=== PATIENT | female | born 1935 | race Caucasian/White ===

== ENCOUNTER → 2017-09-16 | Outpatient (CLI) | payer MEDICARE, BC ==
[~2017-09-16] MED LIST: ACET500T68 PO; ALB18R INH; ALBU2.5V36 INH; ALEN70TA2 PO; ALPR-459 PO; CALC600T63 PO; CHOL100058 PO; CHOL200025 PO; CIPR-214 PO; CITA-139 PO; COAL130S5 TOP; DONE10TA38 PO; DONE5TAB74 PO; DOXY-179 PO; FERR-53 PO; FURO20TA19 PO; GUAI600T57 PO; HYDR-385 PO; IPRA3AMP21 IH; LANC-1147 MC; LEVO75TA73 PO; LIDO10VI16 INTRA-ART; LORA-629 PO; LORA-630 PO; MAGN400T36 PO; MELO-207 PO; METF-410 PO; MIRT-22 PO; MIRT7.5T2 PO; MOX400 PO; NITR-105 PO; NYST15PO4 TP; OMEP-125 PO; PNEU0.5D3 IM; PRED20TA6 PO; QUIN20TA43 PO; SERT-181 PO; SERT-184 PO; SIME125T3 PO; SIME125T40 PO; SPIR25TA78 PO; TRAM-420 PO; TRAZ-156 PO; TRI40I IART; TRI40I INTRA-ART; [UNRECOGNIZED DRUG - CODE] MC; [UNRECOGNIZED DRUG - REMARK]
== END ==
LOC: ZZSPRING 01:28
PROVIDERS: ATTEND Nurse Practitioner Family
DX: R41.3 Other amnesia (principal); I10 Essential (primary) hypertension; E03.9 Hypothyroidism, unspecified
CPT/HCPCS: 36415; 82040; 82247; 82310; 82374; 82435; 82565; 82947; 84075; 84132; 84155; 84295; 84443; 84450; 84460; 84520; 85027

== ENCOUNTER 2017-09-23 11:12 | Emergency (ER) | payer MEDICARE, BC ==
[~2017-09-23 11:12] MED LIST changes: -DIPH-740 PO; -FLUT16SP19 NS; -LEVO-85 PO
[2017-09-23] MEDS ORDERED: NS(*) 0.9% 1000 ML BAG 1,000 ML IV ONE (11:20)
[2017-09-23] MEDS ORDERED: NITROGLYCERIN 0.4 MG SUBL SL SCH (11:20)
--- NOTE | 2017-09-23 11:31 | EKG ---
FACILITY: [facility] PATIENT NAME: DARSHAN BOND : [id number] MR: [id number] V: [id number] EXAM DATE: ORDERING PHYSICIAN: RYAN LLOYD TECHNOLOGIST: ZANDRA Test Reason : CP, SOB Blood Pressure : / mmHG Vent. Rate : 082 BPM Atrial Rate : 082 BPM P-R Int : 170 ms QRS Dur : 146 ms QT Int : 448 ms P-R-T Axes : 033 -55 116 degrees QTc Int : 523 ms Sinus rhythm Left axis deviation Left bundle branch block Abnormal ECG Confirmed by YOLANDA LORENZ ([id number]) on 09/23/2017 5:03:33 PM Referred By: LIZZY Confirmed By:YOLANDA LORENZ
--- NOTE | 2017-09-23 11:43 | ER Report ---
History and Physical Time Seen By MD: 11:38 Hx. of Stated Complaint: CP X 1 HR. GIVEN 324 MG ASPIRIN AT [facility]. HAD 5MG MORPHINE AND 1 SPRAY OF NITRO BY EMS. HPI/ROS Patient's 81-year-old female here by ambulance is a DO NOT RESUSCITATE at [facility] per nursing staff she woke up this morning not feeling well at breakfast time she started clutching her chest and complaining of chest pain at that point they called the ambulance on transport to the ER she received 1 spray of some bubbling will Nitrolin 5 mg IV morphine on arrival she's had pain is 1 out of is on a 0-10 scale midsternal radiating to her back Allergies: Coded Allergies: codeine (Unverified Allergy, Mild, 10/26/14) Beef Containing Products (Unverified Allergy, Unknown, 10/26/14) Morpholine Analogues (Unverified Allergy, Unknown, confusion, 10/26/14) mepivacaine (Unverified Allergy, Unknown, rash and mild swelling, 10/26/14) zolpidem (Unverified Allergy, Unknown, 10/26/14) Uncoded Allergies: MOLD (Allergy, Unknown, 10/26/14) Home Meds Active Scripts Diphenhydramine Hcl (BENADRYL) 25 Mg Capsule, 25 MG PO HS, #14 CAPSULE Prov:RYAN LLOYD 09/23/17 Fluticasone Prop 50 Mcg Ns (FLONASE 50 MCG NS) 16 Gm [place].susp, 1 SPRAY NS BID for 14 Days, BOT Prov:RYAN LLOYD 09/23/17 Levofloxacin 500 Mg Tab (LEVAQUIN 500 MG TAB) 500 Mg Tablet, 500 MG PO DAILY for 7 Days, #7 TAB Prov:RYAN LLOYD 09/23/17 Albuterol Sulfate 0.083% (ALBUTEROL SULFATE 0.083%) 2.5 Mg/3 Ml Vial.neb, 2.5 MG INH Q4-6H Y for WHEEZING, #1 BOX 0 Refills Prov:DORIS ADAMSON APRN-C 08/04/17 Sertraline Hcl (SERTRALINE HCL) 100 Mg Tablet, 1 TAB PO QDAY, #30 TAB 5 Refills Prov:DORIS ADAMSON APRNP-C 07/09/17 Mirtazapine (MIRTAZAPINE) 15 Mg Tablet, 1 TAB PO QHS, #30 TAB 5 Refills Prov:DORIS ADAMSON APRN COOKER SODA-C 06/19/17 Tramadol Hcl (TRAMADOL HCL) 50 Mg Tablet, 1 TAB PO 3-4XD for PAIN, #120 TAB 5 Refills Take one tab 3 times daily scheduled and one tab as needed for pain during the night Prov:DORIS ADAMSON APRN [facility] [employer]-C 05/23/17 Simethicone (GAS-X) 125 Mg Tab.chew, 1 TAB PO TIDAC, #90 TAB.CHEW 5 Refills Prov:DORIS ADAMSON APRN [facility]OOK[facility] [employer]A-C 05/23/17 Acetaminophen (TYLENOL EXTRA STRENGTH) 500 Mg Tablet, 1 TAB PO TID, #90 TAB 11 Refills Prov:DORIS ADAMSON GARAGEMAN COOKER [facility]A-C 05/23/17 Levothyroxine Sodium (LEVOTHYROXINE SODIUM) 75 Mcg Tablet, 1 TAB PO QDAY, #90 TAB 4 Refills Prov:DORIS ADAMSON APRN C[facility]A-C 05/23/17 Donepezil Hcl (DONEPEZIL HCL) 10 Mg Tablet, 1 TAB PO QDAY, #90 TAB 3 Refills Prov:SNOWDORIS TATEN COOKER SODA-C 05/23/17 Omeprazole (OMEPRAZOLE) 20 Mg Capsule.dr, 1 CAP PO QDAY, #90 TAB 3 Refills Prov:DORIS ADAMSON APRN COOKER [facility]A-C 05/23/17 Cholecalciferol (Vitamin D3) (VITAMIN D3) 2,000 Unit Capsule, 1 CAP PO DAILY, # 90 CAPSULE 4 Refills Prov:DORIS ADAMSON APRN COOKER [employer]A-C 04/24/17 Doxycycline Hyclate (DOXYCYCLINE HYCLATE) 100 Mg Tablet, 1 TAB PO QDAY, #30 TAB 9 Refills Prov:DORIS ADAMSON GARAGEMAN COOKER SODA-C 04/24/17 Quinapril Hcl (QUINAPRIL HCL) 20 Mg Tablet, 1 TAB PO QDAY, #30 TAB 11 Refills Prov:DORIS ADAMSON GARAGEMAN COOKER SODA-C 04/24/17 Nystatin 100,000 Unit/Gm Top Powder (NYSTATIN 100,000 UNIT/GM TOP POWDER) 15 Gm Powder, 1 DEVON TP BID Y for rash under breasts for 14 Days, #60 GM 2 Refills Apply to rash twice daily until resolved - notify provider if not improved in 2 weeks. Prov:DORIS ADAMSON APRN-C 03/07/17 [place] Tar (T-Gel) 0.5 % Shampoo, 1 DEVON TOP weekly, #1 BOTTLE 3 Refills Prov:DORIS ADAMSON APRN-C 01/14/17 Trazodone Hcl (TRAZODONE HCL) 50 Mg Tablet, 0.5 TAB PO QHS, #45 TAB 1 Refill Prov:DORIS ADAMSON APRN-C 01/14/17 Loratadine (LORATADINE) 10 Mg Tablet, 1 TAB PO DAILY, #90 TAB 4 Refills Prov:ANGEL LUIS COLINDRES MD 08/23/16 Calcium Carbonate (CALCIUM) 600 Mg Tablet, 1 TAB PO BID, #30 TAB 11 Refills Prov:DORIS ADAMSON APRN-C 11/07/15 Lancets (ONE TOUCH DELICA) 1 Each Each, 1 STRIP MC DAILY, #100 2 Refills Prov:DORIS ADAMSON APRN-C 11/18/14 Lancing Device/Lancets (ONE TOUCH DELICA LANCING DEV) 1 Each Kit, 1 STRIP MC DAILY, #100 2 Refills Prov:DORIS ADAMSON APRN-C 11/18/14 Lancets (ONE TOUCH DELICA) 1 Each Each, 1 EACH MC, #1 Prov:DORIS ADAMSON APRN-C 11/18/14 Discontinued Scripts Meloxicam (MELOXICAM) 15 Mg Tablet, 1 TAB PO QDAY, #90 TAB 3 Refills Prov:DORIS ADAMSON APRNP-C 05/23/17 Past Medical/Surgical History Thyroid disease, allergic rhinitis, dementia, hyperlipidemia, hypertension, asthma, sleep apnea, GERD, arthritis, type II diabetes, Hx Smoking: No Smoking Status: Never Smoker Hx Substance Use Disorder: No Hx Alcohol Use: No Constitutional Vital Sign - Last 24 Hours 09/23/17 09/23/17 09/23/17/17/18 11:17 11:17 11:30 11:31 Temp 97.5 Pulse 87 85 Resp 22 21 B/P (MAP) 163/89 178/87 (117) 165/84 (111) Pulse Ox 96 94 O2 Delivery Nasal Cannula O2 Flow Rate 2.0 09/23/17 09/23/17 09/23/17 09/23/17 11:39 11:45 11:50 11:55 B/P (MAP) 183/88 (119) 173/89 (117) 180/90 (120) 169/87 (114) 09/23/17 09/23/17 09/23/17 09/23/17 12:00 12:05 12:10 12:15 Pulse 82 Resp 17 B/P (MAP) 172/82 (112) 166/86 (112) 168/85 (112) 174/85 (114) Pulse Ox 96 09/23/17 09/23/17 09/23/17 09/23/17 12:20 12:25 12:30 12:35 Pulse 84 Resp 17 B/P (MAP) 179/82 (114) 173/83 (113) 187/77 (113) 170/81 (110) Pulse Ox 97 09/23/17 09/23/17 09/23/17 09/23/17 12:40 12:45 12:50 12:55 B/P (MAP) 183/78 (113) 187/86 (119) ???/??? (1665) ???/??? (1665) 09/23/17 09/23/17 09/23/17 09/23/17 13:00 13:05 13:10 13:15 Pulse 88 Resp 20 B/P (MAP) 167/73 (104) 170/66 (100) 156/85 (108) 166/70 (102) Pulse Ox 97 09/23/17 09/23/17 09/23/17 09/23/17 13:20 13:25 13:30 13:35 Pulse 103 Resp 16 B/P (MAP) 179/72 (107) 179/75 (109) 185/74 (111) 184/100 (128) Pulse Ox 97 09/23/17 09/23/17 09/23/17 09/23/17 13:40 13:45 13:50 13:55 B/P (MAP) 192/90 (124) 188/87 (120) 189/92 (124) 188/98 (128) 18 18 18 09/23/17 14:00 14:05 14:10 14:15 Pulse 98 Resp 14 B/P (MAP) 188/91 (123) 182/84 (116) 167/105 (125) 148/111 (123) Pulse Ox 97 18 18 18 09/23/17 14:20 14:25 14:30 14:35 Pulse 99 Resp 15 B/P (MAP) 181/87 (118) 189/88 (121) 191/86 (121) 177/80 (112) Pulse Ox 98 18 18 18 09/23/17 14:40 14:45 14:50 14:55 B/P (MAP) 173/80 (111) 182/78 (112) 183/80 (114) 193/88 (123) 18 18 18 09/23/17 15:00 15:05 15:10 15:15 Pulse 98 Resp 9 B/P (MAP) 183/74 (110) 177/153 (161) 182/83 (116) ???/??? (8465) Pulse Ox 98 18 18 18 09/23/17 15:20 15:27 15:30 15:35 Pulse 96 Resp 28 B/P (MAP) ???/??? (7975) 190/84 (119) 175/129 (144) 184/92 (122) Pulse Ox 95 09/23/18 09/23/18 //18 18 15:40 15:45 15:50 15:55 B/P (MAP) 175/109 (131) 182/127 (145) 163/137 (146) 163/96 (118) 18 18 18 09/23/17 16:00 16:05 16:10 16:15 Pulse 91 Resp 14 B/P (MAP) 168/90 (116) 181/85 (117) 174/82 (112) 163/84 (110) Pulse Ox 87 09/23/17 09/23/17 09/23/17 09/23/17 16:20 16:25 16:30 16:35 Pulse 103 B/P (MAP) ???/??? (1665) ???/??? (1665) 157/91 (113) 175/98 (123) Pulse Ox 97 09/23/17 09/23/17 09/23/17 09/23/17 16:40 16:45 17:00 17:00 Pulse 115 115 Resp 20 20 B/P (MAP) 175/98 (123) 136/103 (114) 09/23/17 09/23/17 17:30 18:00 Pulse 121 109 Resp 28 13 Intake and Output 09/23/17 09/23/17 09/24/17 15:00 23:00 07:00 Intake Total 1100 ml Balance 1100 ml Physical Exam Patient is a 81-year-old female is awake has progressive dementia according to her daughter she is at her normal baseline status HEENT head is normocephalic atraumatic tympanic membranes non-reddened lips are dry no pharyngeal edema no JVD heart rate is regular no murmurs or gallops lungs clear to auscultation abdomen is obese mild tenderness mid epigastric area bowel sounds 4 quadrants moves all extremities no peripheral edema Medical Decision Making Data Points Result Diagram: 09/23/17 1139 09/23/17 1139 Laboratory Hematology Test 09/23/17 11:39 09/23/17 13:45 09/23/17 15:19 Red Blood Count 4.86 M/uL (4.17-5.56) Mean Corpuscular Volume 82.5 fL (80.0-96.0) Mean Corpuscular Hemoglobin 27.5 pg (26.0-33.0) Mean Corpuscular Hemoglobin Concent 33.3 g/dL (32.0-36.0) Red Cell Distribution Width 15.1 % (11.5-14.5) Mean Platelet Volume 8.8 fL (7.2-11.1) Neutrophils (%) (Auto) 89.3 % (39.4-72.5) Lymphocytes (%) (Auto) 2.6 % (17.6-49.6) Monocytes (%) (Auto) 7.9 % (4.1-12.4) Eosinophils (%) (Auto) 0.0 % (0.4-6.7) Basophils (%) (Auto) 0.2 % (0.3-1.4) Nucleated RBC Relative Count (auto) 0.0 /100WBC Neutrophils # (Auto) 23.6 K/uL (2.0-7.4) Lymphocytes # (Auto) 0.7 K/uL (1.3-3.6) Monocytes # (Auto) 2.1 K/uL (0.3-1.0) Eosinophils # (Auto) 0.0 K/uL (0.0-0.5) Basophils # (Auto) 0.1 K/uL (0.0-0.1) Nucleated RBC Absolute Count (auto) 0.00 K/uL Peripheral Blood Smear Yes Y/N Prothrombin Time 15.1 seconds (12.0-14.4) Prothromb Time International Ratio 1.18 Activated Partial Thromboplast Time 29 seconds (23-35) D-Dimer Quantitative (PE/DVT) 1.15 ug/ml (0-0.50) Sodium Level 137 mmol/L (137-145) Potassium Level 3.6 mmol/L (3.5-5.0) Chloride Level 102 mmol/L (98-107) Carbon Dioxide Level 21 mmol/L (22-31) Blood Urea Nitrogen 21 mg/dl (7-18) Creatinine 0.90 mg/dl (0.52-1.04) Glomerular Filtration Rate Calc > 60.0 Random Glucose 222 mg/dl (75-110) Calcium Level 10.8 mg/dl (8.4-10.2) Total Bilirubin 0.8 mg/dl (0.2-1.3) Aspartate Amino Transf (AST/SGOT) 19 U/L (0-35) Alanine Aminotransferase (ALT/SGPT) 12 U/L (0-56) Alkaline Phosphatase 83 U/L (0-126) B-Type Natriuretic Peptide 605 pg/ml (0-100) Total Protein 6.7 gm/dl (6.3-8.2) Albumin 4.1 g/dl (3.5-5.0) Amylase Level 49 U/L (0-110) Lipase 84 U/L (23-300) Urine Color Straw Urine Clarity Clear Urine pH 6.0 pH (4.8-9.5) Urine Specific [place] 1.036 Urine Protein Negative mg/dL (NEGATIVE) Urine Glucose (UA) 500 mg/dL (NEGATIVE) Urine Ketones Trace mg/dL (NEGATIVE) Urine Blood Negative (NEGATIVE) Urine Nitrite Negative (NEGATIVE) Urine Bilirubin Negative (NEGATIVE) Urine Urobilinogen Negative mg/dL (0.2-1.9) Urine Leukocyte Esterase Negative (NEGATIVE) Urine RBC None /HPF (0-2/HPF) Urine WBC 2 /HPF (0-5/HPF) Urine Squamous Epithelial Cells None /LPF (</=FEW) Urine Bacteria Few /HPF (NONE-FEW) Urine Mucus None /HPF (NONE-FEW) Troponin I < 0.012 ng/ml Chemistry Test 09/23/17 11:39 09/23/17 13:45 09/23/17 15:19 White Blood Count 26.5 k/uL (4.5-11.0) Red Blood Count 4.86 M/uL (4.17-5.56) Hemoglobin 13.4 g/dL (12.0-16.0) Hematocrit 40.2 % (34.0-47.0) Mean Corpuscular Volume 82.5 fL (80.0-96.0) Mean Corpuscular Hemoglobin 27.5 pg (26.0-33.0) Mean Corpuscular Hemoglobin Concent 33.3 g/dL (32.0-36.0) Red Cell Distribution Width 15.1 % (11.5-14.5) Platelet Count 214 K/uL (150-450) Mean Platelet Volume 8.8 fL (7.2-11.1) Neutrophils (%) (Auto) 89.3 % (39.4-72.5) Lymphocytes (%) (Auto) 2.6 % (17.6-49.6) Monocytes (%) (Auto) 7.9 % (4.1-12.4) Eosinophils (%) (Auto) 0.0 % (0.4-6.7) Basophils (%) (Auto) 0.2 % (0.3-1.4) Nucleated RBC Relative Count (auto) 0.0 /100WBC Neutrophils # (Auto) 23.6 K/uL (2.0-7.4) Lymphocytes # (Auto) 0.7 K/uL (1.3-3.6) Monocytes # (Auto) 2.1 K/uL (0.3-1.0) Eosinophils # (Auto) 0.0 K/uL (0.0-0.5) Basophils # (Auto) 0.1 K/uL (0.0-0.1) Nucleated RBC Absolute Count (auto) 0.00 K/uL Peripheral Blood Smear Yes Y/N Prothrombin Time 15.1 seconds (12.0-14.4) Prothromb Time International Ratio 1.18 Activated Partial Thromboplast Time 29 seconds (23-35) D-Dimer Quantitative (PE/DVT) 1.15 ug/ml (0-0.50) Glomerular Filtration Rate Calc > 60.0 Calcium Level 10.8 mg/dl (8.4-10.2) Total Bilirubin 0.8 mg/dl (0.2-1.3) Aspartate Amino Transf (AST/SGOT) 19 U/L (0-35) Alanine Aminotransferase (ALT/SGPT) 12 U/L (0-56) Alkaline Phosphatase 83 U/L (0-126) B-Type Natriuretic Peptide 605 pg/ml (0-100) Total Protein 6.7 gm/dl (6.3-8.2) Albumin 4.1 g/dl (3.5-5.0) Amylase Level 49 U/L (0-110) Lipase 84 U/L (23-300) Urine Color Straw Urine Clarity Clear Urine pH 6.0 pH (4.8-9.5) Urine Specific [place] 1.036 Urine Protein Negative mg/dL (NEGATIVE) Urine Glucose (UA) 500 mg/dL (NEGATIVE) Urine Ketones Trace mg/dL (NEGATIVE) Urine Blood Negative (NEGATIVE) Urine Nitrite Negative (NEGATIVE) Urine Bilirubin Negative (NEGATIVE) Urine Urobilinogen Negative mg/dL (0.2-1.9) Urine Leukocyte Esterase Negative (NEGATIVE) Urine RBC None /HPF (0-2/HPF) Urine WBC 2 /HPF (0-5/HPF) Urine Squamous Epithelial Cells None /LPF (</=FEW) Urine Bacteria Few /HPF (NONE-FEW) Urine Mucus None /HPF (NONE-FEW) Troponin I < 0.012 ng/ml Coagulation Test 09/23/17 11:39 Prothrombin Time 15.1 seconds Prothromb Time International Ratio 1.18 Activated Partial Thromboplast Time 29 seconds D-Dimer Quantitative (PE/DVT) 1.15 ug/ml Urinalysis Test 09/23/17 13:45 Urine Color Straw Urine Clarity Clear Urine pH 6.0 pH (4.8-9.5) Urine Specific [place] 1.036 Urine Protein Negative mg/dL (NEGATIVE) Urine Glucose (UA) 500 mg/dL (NEGATIVE) Urine Ketones Trace mg/dL (NEGATIVE) Urine Blood Negative (NEGATIVE) Urine Nitrite Negative (NEGATIVE) Urine Bilirubin Negative (NEGATIVE) Urine Urobilinogen Negative mg/dL (0.2-1.9) Urine Leukocyte Esterase Negative (NEGATIVE) Urine RBC None /HPF (0-2/HPF) Urine WBC 2 /HPF (0-5/HPF) Urine Squamous Epithelial Cells None /LPF (</=FEW) Urine Bacteria Few /HPF (NONE-FEW) Urine Mucus None /HPF (NONE-FEW) EKG/Imaging EKG Interpretation EKG of 1120 normal sinus with left bundle branch block and noticed a left bundle branch block is unchanged from the EKG 10/26/2014 did review EKGs with Dr. Mullins does not meet criteria for STEMI well a repeat at 1515 EKG remains unchanged with left bundle brought branch block ED Course/Re-evaluation Clinical Indication for ER IV: Hydration ED Course Patient came in initially for chest pain EKG showed a left bundle branch block which is old for this patient troponins are negative chest x-ray was negative she did have a white count 25,000 chest x-ray was negative for infection urine specimen was negative for infection she did have some small stones in her gallbladder gallbladder ultrasound showed some sludge in and small stones but amylase lipase are negative liver functions are negative as well discussed this patient with Dr. quevedo we did CT her head which showed some sinus disease and we' ll treat this as potential source of her leukocytosis we'll also CT her at pelvis that showed the small stones in her gallbladder otherwise negative I did talk to the daughter about doing a lumbar puncture she did not want to proceed with this with her mother will treat symptomatically for the sinus infection with Levaquin and Flonase following up closely with primary care physician Re-evaluation Family does not want a lumbar puncture done for this patient to workup her leukocytosis I a did discuss this patient with Dr. quevedo we will treat her sinus infection return [facility] the [place] [facility] with Levaquin prescription follow-up closely with PCP did do a serial troponin here in the emergency room the negative Decision to Disposition Date: Sep 23, 2017 Decision to Disposition Time: 17:30 Depart Departure Latest Vital Signs Vital Signs Date Time Temp Pulse Resp B/P (MAP) Pulse Ox O2 Delivery O2 Flow Rate FiO2 09/23/17 18:00 109 13 09/23/17 16:45 136/103 (114) 09/23/17 16:30 97 09/23/17 11:17 97.5 Nasal Cannula 09/23/17 11:17 2.0 Impression: Primary Impression: Sinusitis Additional Impression: Change in mental status Condition: Improved Disposition: HOME OR SELF-CARE Referrals: DORIS ADAMSON APRN-Kyle (PCP) 2 Days New Scripts Diphenhydramine Hcl (BENADRYL) 25 Mg Capsule 25 MG PO HS, #14 CAPSULE Prov: RYAN LLOYD 09/23/17 Fluticasone Prop 50 Mcg Ns (FLONASE 50 MCG NS) 16 Gm [place].susp 1 SPRAY NS BID for 14 Days, BOT Prov: RYAN LLOYD 09/23/17 Levofloxacin 500 Mg Tab (LEVAQUIN 500 MG TAB) 500 Mg Tablet 500 MG PO DAILY for 7 Days, #7 TAB Prov: RYAN LLOYD 09/23/17 Patient Instructions: Sinusitis (ED) Additional Instructions: Levaquin 500 mg orally daily 7 additional days, Benadryl 25 mg at at bedtime as needed for sleep when necessary, Flonase 1 spray twice a day each [place] 14 days Problem Qualifiers RYAN LLOYD Sep 23, 2017 11:43
[2017-09-23 11:51] LABS: PLATELET COUNT, AUTOMATED 214 K/uL (150-450)
[2017-09-23 12:01] LABS: INR 1.18
--- NOTE | 2017-09-23 12:13 | RADIOLOGY IMAGING REPORT ---
[facility] PATIENT NAME: Kerry Giang : 1935 MR: [id number] V: [id number] EXAM DATE: [id number] ORDERING PHYSICIAN: RYAN LLOYD TECHNOLOGIST: Location: [facility] [place] Patient: Kerry Giang : 1935 Visit/Account:[id number] Date of Sevice: 09/23/2017 EXAMINATION: Portable chest radiograph single view at 11:27 AM HISTORY: Chest pain. COMPARISON: 08/18/2016. FINDINGS: A single portable AP view of the chest is obtained. Lines/tubes: None. Lungs/pleura: Mild linear opacities at the left lung base. No evidence of pneumothorax or significan t pleural effusion. Pulmonary vascularity is within normal limits. Heart: Normal heart size. Mediastinum: Stable mediastinal contours. Calcified plaque at the aortic arch. Bony structures/body wall: Degenerative changes in the shoulders. Multilevel degenerative changes in the spine. IMPRESSION: Mild subsegmental atelectasis at the left lung base. Report Dictated By: Eliazar Ward MD at 09/23/2017 12:07 PM Report E-Signed By: Eliazar Ward MD at 09/23/2017 12:09 PM WSN:[id number]
[2017-09-23] MEDS ORDERED: IOPAMIDOL 76% 75 ML INFUS BTL 75 ML ONE (12:34)
[2017-09-23] MEDS ORDERED: NS 0.9% 150 ML BAG 150 ML ONE (12:34)
--- NOTE | 2017-09-23 13:35 | RADIOLOGY IMAGING REPORT ---
FACILITY: [facility] PATIENT NAME: Kerry Giang : 1935 MR: [id number] V: [id number] EXAM DATE: ORDERING PHYSICIAN: RYAN LLOYD TECHNOLOGIST: Location: [facility] - [place] Patient: Kerry Giang : 1935 Visit/Account:[id number] Date of Sevice: 09/23/2017 CT angiogram chest with contrast Indication: Chest pain. Comparison: None available. Technique: Axial CT images are obtained through the chest after administration of 75 mL Isovue 370 IV contrast. Reformatted coronal and sagittal images were reviewed as well as coronal MIP images. One of the following dose optimization techniques was utilized in the performance of this exam: auto mated exposure control; adjustment of the mA and/or kV according to the patient's size; or use of an iterative reconstruction technique. Specific details can be referenced in the facility's radiology C T exam operational policy. FINDINGS: No evidence of filling defect within the pulmonary vasculature to suggest pulmonary embolus. The heart is normal size without pericardial effusion. Aorta shows mild atherosclerotic calcific nogueiar ges without aneurysm or dissection. The mediastinum and hilar regions show couple small lymph nodes w ithout any enlarged lymph nodes. Lungs show no consolidation, pleural effusion, pneumothorax. No discrete nodule or focal interstitial opacities. Airways are clear. Bony structures show no acute fracture or discrete lesions. Spine shows degenerative changes. There i s some bony fusion of T10-T12 without sequelae. Degenerative changes of the left shoulder. [place] ior left 10th rib fracture. Chest wall shows no enlarged axillary lymph nodes or masses. There appear s to be a benign calcification in the posterior right thyroid or adjacent to the posterior right thyr oid. There may be a couple tiny layering gallstones without other gallbladder abnormality. The stomach pratima ws mild diffuse thickening however is decompressed. The upper abdomen is otherwise unremarkable. IMPRESSION: 1. No evidence of pulmonary embolus. 2. No acute cardiothoracic abnormality 3. Question of a couple tiny gallstones. 4. The stomach does show mild diffuse thickening however is decompressed. This could be due to the de compressed appearance. However follow-up endoscopy can evaluate for abnormality, especially if there is clinical concern. 5. Other chronic findings as above. Report Dictated By: Joseph Cook at 09/23/2017 1:15 PM Report E-Signed By: Joseph Cook at 09/23/2017 1:31 PM WSN:[id number]
--- NOTE | 2017-09-23 15:38 | EKG ---
FACILITY: [facility] PATIENT NAME: DARSHAN BOND : [id number] MR: [id number] V: [id number] EXAM DATE: ORDERING PHYSICIAN: RYAN LLOYD TECHNOLOGIST: ZANDRA Test Reason : SOB Blood Pressure : / mmHG Vent. Rate : 090 BPM Atrial Rate : 090 BPM P-R Int : 174 ms QRS Dur : 140 ms QT Int : 402 ms P-R-T Axes : 067 -58 118 degrees QTc Int : 491 ms Sinus rhythm Left axis deviation Left bundle branch block Abnormal ECG When compared with ECG of 23-SEP-2017 11:20, No significant change was found Confirmed by YOLANDA LORENZ ([id number]) on 09/23/2017 5:11:58 PM Referred By: MICHELLE Confirmed By:YOLANDA LORENZ
--- NOTE | 2017-09-23 15:42 | RADIOLOGY IMAGING REPORT ---
FACILITY: [facility] - [place] PATIENT NAME: Kerry Giang : 1935 MR: [id number] V: [id number] EXAM DATE: ORDERING PHYSICIAN: RYAN LLOYD TECHNOLOGIST: Location: [facility] [place] Patient: Kerry Giang : 1935 Visit/Account:[id number] Date of Sevice: 09/23/2017 GALLBLADDER HISTORY: abd pain COMPARISON: None. FINDINGS: Gallbladder: Nonshadowing nonmobile echogenic foci are seen along the gallbladder wall which may repr esent sludge, nonshadowing calculi or polyps. Gallbladder wall does not appear thickened and measure s 2.4 mm in thickness there is a negative Wynn sign by technologist notation Liver: Negative. Common duct: Normal, 3.7 mm diameter. Pancreas: Partially obscured by bowel, visualized aspects unremarkable. Right kidney: Right kidney appears unremarkable as imaged measuring 9.5 cm in length Upper abdominal aorta and IVC: Patent. Ascites: None visualized. IMPRESSION: Nonshadowing nonmobile echogenic foci are seen along the gallbladder wall which may represent tiny no nshadowing stones, sludge or polyps Report Dictated By: Maci Sánchez MD at 09/23/2017 3:36 PM Report E-Signed By: Maci Sánchez MD at 09/23/2017 3:39 PM WSN:[id number]
[2017-09-23] MEDS ORDERED: LORazepam 2 MG/ML VIAL IVP ONE (16:05)
[2017-09-23 16:45] VITALS: BP 136/103
[2017-09-23] MEDS ORDERED: diphenhydrAMINE 50 MG/ML VIAL IVP ONE ×2 (16:50→17:35)
--- NOTE | 2017-09-23 16:59 | RADIOLOGY IMAGING REPORT ---
FACILITY: [facility] - [place], [place] PATIENT NAME: Kerry Giang : 1935 MR: [id number] V: [id number] EXAM DATE: ORDERING PHYSICIAN: RYAN LLOYD TECHNOLOGIST: Location: [facility] - [place] Patient: Kerry Giang : 1935 Visit/Account:[id number] Date of Sevice: 09/23/2017 CT Head without contrast Indication: Confusion, altered mental status. Comparison: 02/08/2016, report. Images failed to cross over for visualization. Technique: Axial CT images were obtained through the brain from the skull base to the vertex without administration of IV contrast. Reformatted coronal and sagittal images were also obtained. One of the following dose optimization techniques was utilized in the performance of this exam: autom ated exposure control; adjustment of the mA and/or kV according to the patient's size; or use of an i terative reconstruction technique. Specific details can be referenced in the facility's radiology CT exam operational policy. Findings: No evidence of mass, mass effect, or midline shift. No acute intracranial hemorrhage or acute territorial infarction. No extra-axial fluid collection or hydrocephalus. Age-related cerebral atrophy. Periventricular white matter ischemic changes consistent small vessel disease. Ruano/white matter differentiation appears n ormal. The bony structures show no acute fractures or discrete lesions. There is mild irregularity of the an terior left sphenoid sinus wall which could be from a previous fracture. There is a mucosal thickening/fluid seen in both ethmoid sinuses, left maxillary and sphenoid sinus w ith a small amount in the right sphenoid sinus. The remaining sinuses and mastoids visualized are [place] ar. IMPRESSION: 1. Senescent changes without acute abnormality. 2. Sinus disease. Report Dictated By: Joseph Cook at 09/23/2017 4:49 PM Report E-Signed By: Joseph Cook at 09/23/2017 4:56 PM WSN:[id number]
--- NOTE | 2017-09-23 17:07 | RADIOLOGY IMAGING REPORT ---
FACILITY: [facility] - [place] PATIENT NAME: Kerry Giang : 1935 MR: [id number] V: [id number] EXAM DATE: [id number] ORDERING PHYSICIAN: RYAN LLOYD TECHNOLOGIST: Location: [facility] [place] Patient: Kerry Giang : 1935 Visit/Account:[id number] Date of Sevice: 09/23/2017 CT abdomen and pelvis without contrast Indication: Abdominal pain. Comparison: None Available. Technique: Axial CT images are obtained through the abdomen and pelvis. Reformatted coronal and sagit epi images were reviewed. IV contrast was not administered. One of the following dose optimization techniques was utilized in the performance of this exam: auto mated exposure control; adjustment of the mA and/or kV according to the patient's size; or use of an iterative reconstruction technique. Specific details can be referenced in the facility's radiology C T exam operational policy. Findings: Lower lung saenz: Dependent atelectasis, otherwise clear. Evaluation of the solid organs of the abdomen is limited without IV contrast. Liver: No focal parenchymal abnormality of the liver. Biliary: Question of tiny layering gallstones however there is motion artifact causing degradation of the images. The gallbladder is otherwise unremarkable. The biliary system is unremarkable. Pancreas: No focal abnormality. Spleen: Normal appearance. Adrenal glands: Unremarkable. Kidneys / retroperitoneum: No evidence of nephrolithiasis or hydronephrosis. No focal normality. Bowel / peritoneum / mesenteries: The colon does show some diverticula in sigmoid colon without peric olonic inflammation. No other colonic abnormality. The appendix not visualized. No secondary signs of appendicitis. Small bowel shows no focal abnormality or obstruction. The stomach is decompressed and grossly normal. Small hiatal hernia. No free air, free fluid, fluid collections or areas of inflammation. Lymph node assessment: No pathologic adenopathy identified. Pelvic structures: Appear unremarkable. Vessels: Mild atherosclerotic calcifications seen throughout a nonaneurysmal abdominal aorta and bran ches. Musculoskeletal / Body wall: No acute or aggressive osseous abnormality. Degenerative changes spine. Right hip arthroplasty without sequelae. IMPRESSION: 1. No acute intra-abdominal abnormality identified. 2. Sigmoid diverticulosis without radiographic indication of diverticulitis. 3. Question of tiny gallstones. However there is motion artifact degrading the images. The gallbladde r is otherwise grossly normal. Report Dictated By: Joseph Cook at 09/23/2017 4:56 PM Report E-Signed By: Joseph Cook at 09/23/2017 5:04 PM WSN:[id number]
[2017-09-23] MEDS ORDERED: LEVOFLOXACIN/D5W*500 MG/100 ML 100 ML IVPB ONE (17:10)
[2017-09-23] MEDS ORDERED: LEVO-85 PO (17:17)
[2017-09-23] MEDS ORDERED: FLUT16SP19 NS (17:17)
[2017-09-23] MEDS ORDERED: DIPH-740 PO (17:24)
[2017-09-23] MEDS ORDERED: diphenhydrAMINE 25 MG CAP TH PO ONE (18:20)
== END 2017-09-23 18:24 | disposition home or self-care (01) ==
LOC: ER 11:18
DX: J32.9 Chronic sinusitis, unspecified (principal); R41.82 Altered mental status, unspecified; D72.829 Elevated white blood cell count, unspecified; I44.7 Left bundle-branch block, unspecified; R94.31 Abnormal electrocardiogram [ECG] [EKG]
CPT/HCPCS: 36415; 70450; 71045; 71275; 74176; 76705; 81001; 82150; 83690; 83880; 84484; 85025; 85379; 85610; 85730; 93005; 96361; 96365; 96375; 99284; A9270; J1956; J2060; J7030; Q9967; 82040; 82247; 82310; 82374; 82435; 82565; 82947; 84075; 84132; 84155; 84295; 84450; 84460; 84520; A4353; J1200

== ENCOUNTER → 2017-09-23 | Outpatient (CLI) | payer MEDICARE, BC ==
[~2017-09-23] MED LIST changes: +DIPH-740 PO; +FLUT16SP19 NS; +LEVO-85 PO
[2017-09-26 08:53] VITALS: BMI 23.6
== END ==
LOC: AMB 18:19
PROVIDERS: ATTEND Nurse Practitioner
DX: R53.1 Weakness (principal)
CPT/HCPCS: A0425; A0428

== ENCOUNTER → 2017-09-23 | Outpatient (CLI) | payer MEDICARE, BC ==
[2017-09-26 08:53] VITALS: BMI 23.6
== END ==
LOC: AMB 10:53
PROVIDERS: ATTEND Nurse Practitioner
DX: R07.9 Chest pain, unspecified (principal); R06.02 Shortness of breath; R03.0 Elevated blood-pressure reading, without diagnosis of hypertension; R53.1 Weakness; R53.83 Other fatigue
CPT/HCPCS: A0425; A0427

== ENCOUNTER 2017-09-25 17:19 | Inpatient (IN) | payer MEDICARE, BC ==
[~2017-09-25] VITALS: Ht 149.9 cm; Wt 53.1 kg
[2017-09-25] MEDS ORDERED: NS(*) 0.9% 1000 ML BAG 1,000 ML IV ONE (18:00)
--- NOTE | 2017-09-25 18:28 | ER Report ---
History and Physical Time Seen By MD: 17:40 Hx. of Stated Complaint: [place]x of having an elevated wbc since Friday. Worse today. Started on Levaquin Friday (ELLEN STODDARD) HPI/ROS CHIEF COMPLAINT: Elevated white count HISTORY OF PRESENT ILLNESS: 81-year-old female patient presents to emergency room with complaint of an elevated white count. Patient was seen here in the emergency room 2 days ago and was diagnosed with sinusitis. At that time she had a white count of 26,000. She was followed up with primary care provider today who repeated labs. They did note that she had an elevated white count of 37,000, she had a blood pressure of 94/50. She did have a creatinine that had gone from 0.9 2 days ago to 1.2 today. The provider felt that she should be evaluated and treated for possible sepsis. The patient has had worsening confusion, stating that she's had a child today, but does not know who the father is. She also states she was to [place] at the time of his passing. Family denies the patient has had any nausea, vomiting or diarrhea. They have been giving her Levaquin for the last 2 days. Family states that the ASPHALT WORKER that was taking care of her this morning stated that she may possibly have a urinary tract infection as the urine was cloudy this morning. REVIEW OF SYSTEMS: Respiratory: No cough, no dyspnea. Cardiovascular: No chest pain, no palpitations. Gastrointestinal: No vomiting, no abdominal pain. Musculoskeletal: No back pain. (ELLEN STODDARD) Allergies: Coded Allergies: codeine (Unverified Allergy, Mild, 09/25/17) Beef Containing Products (Unverified Allergy, Unknown, 09/25/17) Morpholine Analogues (Unverified Allergy, Unknown, confusion, 09/25/17) mepivacaine (Unverified Allergy, Unknown, rash and mild swelling, 09/25/17) zolpidem (Unverified Allergy, Unknown, 09/25/17) Uncoded Allergies: MOLD (Allergy, Unknown, 10/26/14) Home Meds Active Scripts Fluticasone Prop 50 Mcg Ns (FLONASE 50 MCG NS) 16 Gm [place].susp, 1 SPRAY NS BID for 14 Days, BOT Prov:RYAN LLOYD 09/23/17 Levofloxacin 500 Mg Tab (LEVAQUIN 500 MG TAB) 500 Mg Tablet, 500 MG PO DAILY for 7 Days, #7 TAB Prov:PREMARYAN BRUNO Julienne MCNAIR 09/23/17 Albuterol Sulfate 0.083% (ALBUTEROL SULFATE 0.083%) 2.5 Mg/3 Ml Vial.neb, 2.5 MG INH Q4-6H Y for WHEEZING, #1 BOX 0 Refills Prov:DORIS ADAMSON APRN-C 08/04/17 Sertraline Hcl (SERTRALINE HCL) 100 Mg Tablet, 1 TAB PO QDAY, #30 TAB 5 Refills Prov:DORIS ADAMSON APRN-C 07/09/17 Mirtazapine (MIRTAZAPINE) 15 Mg Tablet, 1 TAB PO QHS, #30 TAB 5 Refills Prov:DORIS ADAMSON APRN-C 06/19/17 Tramadol Hcl (TRAMADOL HCL) 50 Mg Tablet, 1 TAB PO 3-4XD for PAIN, #120 TAB 5 Refills Take one tab 3 times daily scheduled and one tab as needed for pain during the night Prov:DORIS ADAMSON APRN-C 05/23/17 Simethicone (GAS-X) 125 Mg Tab.chew, 1 TAB PO TIDAC, #90 TAB.CHEW 5 Refills Prov:DORIS ADAMSON APRN-C 05/23/17 Acetaminophen (TYLENOL EXTRA STRENGTH) 500 Mg Tablet, 1 TAB PO TID, #90 TAB 11 Refills Prov:DORIS ADAMSON APRN-C 05/23/17 Levothyroxine Sodium (LEVOTHYROXINE SODIUM) 75 Mcg Tablet, 1 TAB PO QDAY, #90 TAB 4 Refills Prov:DORIS ADAMSON APRN-C 05/23/17 Donepezil Hcl (DONEPEZIL HCL) 10 Mg Tablet, 1 TAB PO QDAY, #90 TAB 3 Refills Prov:DORIS ADAMSON APRN-C 05/23/17 Omeprazole (OMEPRAZOLE) 20 Mg Capsule.dr, 1 CAP PO QDAY, #90 TAB 3 Refills Prov:DORIS ADAMSON APRN-C 05/23/17 Cholecalciferol (Vitamin D3) (VITAMIN D3) 2,000 Unit Capsule, 1 CAP PO DAILY, # 90 CAPSULE 4 Refills Prov:DORIS ADAMSON APRN-C 04/24/17 Doxycycline Hyclate (DOXYCYCLINE HYCLATE) 100 Mg Tablet, 1 TAB PO QDAY, #30 TAB 9 Refills Prov:DORIS ADAMSON APRN-C 04/24/17 Quinapril Hcl (QUINAPRIL HCL) 20 Mg Tablet, 1 TAB PO QDAY, #30 TAB 11 Refills Prov:DORIS ADAMSON APRN-C 04/24/17 Nystatin 100,000 Unit/Gm Top Powder (NYSTATIN 100,000 UNIT/GM TOP POWDER) 15 Gm Powder, 1 DEVON TP BID Y for rash under breasts for 14 Days, #60 GM 2 Refills Apply to rash twice daily until resolved - notify provider if not improved in 2 weeks. Prov:DORIS ADAMSON APRN-C 03/07/17 Bradford Tar (T-Gel) 0.5 % Shampoo, 1 DEVON TOP weekly, #1 BOTTLE 3 Refills Prov:DORSI ADAMSON APRN-C 01/14/17 Trazodone Hcl (TRAZODONE HCL) 50 Mg Tablet, 0.5 TAB PO QHS, #45 TAB 1 Refill Prov:DORIS ADAMSON APRN-C 01/14/17 Loratadine (LORATADINE) 10 Mg Tablet, 1 TAB PO DAILY, #90 TAB 4 Refills Prov:ANGEL LUIS COLINDRES MD 08/23/16 Calcium Carbonate (CALCIUM) 600 Mg Tablet, 1 TAB PO BID, #30 TAB 11 Refills Prov:DORIS ADAMSON APRN-C 11/07/15 Lancets (ONE TOUCH DELICA) 1 Each Each, 1 STRIP MC DAILY, #100 2 Refills Prov:DORIS ADAMSON APRN-C 11/18/14 Lancing Device/Lancets (ONE TOUCH DELICA LANCING DEV) 1 Each Kit, 1 STRIP MC DAILY, #100 2 Refills Prov:DORIS ADAMSON APRNC 11/18/14 Lancets (ONE TOUCH DELICA) 1 Each Each, 1 EACH , #1 Prov:SNOWDORIS YONY CHIP BIN OPERATOR-C 11/18/14 Discontinued Scripts Diphenhydramine Hcl (BENADRYL) 25 Mg Capsule, 25 MG PO HS, #14 CAPSULE Prov:RYAN LLOYD HELICOPTER SPECIALIST-C 09/23/17 Past Medical/Surgical History Has a past medical history of dementia, hypertension, hyperlipidemia, asthma, reflux, arthritis, fractures, diabetes, hypothyroidism. Patient has surgical history of appendectomy, total hip replacement, total knee replacement, tonsillectomy. (ELLEN STODDARD) Reviewed Nurses Notes: Yes (ELLEN STODDARD) Hx Smoking: No Smoking Status: Never Smoker Hx Substance Use Disorder: No Hx Alcohol Use: No (ELLEN STODDARD) Constitutional Vital Sign - Last 24 Hours 09/25/17 09/25/17 09/25/17 09/25/17 17:22 17:25 17:40 17:49 Temp 98.6 Pulse 73 75 Resp 20 B/P (MAP) 138/54 138/54 (82) 114/39 (64) Pulse Ox 97 95 O2 Delivery Room Air 09/25/17 09/25/17 09/25/17 09/25/17 18:00 18:05 18:20 18:35 Pulse 85 ? B/P (MAP) 119/48 (71) Pulse Ox 93 09/25/17 09/25/17 09/25/17 09/25/17 18:50 19:00 19:05 19:08 Pulse ? B/P (MAP) 46/28 (34) 110/62 (78) 09/25/17 09/25/17 09/25/17 09/25/17 19:12 19:20 19:30 19:35 Pulse 68 66 B/P (MAP) 137/88 (104) 129/68 (88) Pulse Ox 99 98 09/25/17 09/25/17 09/25/17 09/25/17 19:40 19:55 20:08 20:10 Pulse ??? 78 81 B/P (MAP) 157/75 (102) Pulse Ox 97 98 09/25/17 09/25/17 09/25/17 09/25/17 20:25 20:36 20:40 20:55 Pulse 83 87 84 B/P (MAP) 164/71 (102) Pulse Ox 100 100 96 09/25/17 09/25/17 09/25/17 21:00 21:10 21:15 Pulse 88 84 B/P (MAP) 124/82 (96) Pulse Ox 96 94 ([facility],VIVIANE Thakur MD) Physical Exam General Appearance: The patient is alert, has no immediate need for airway protection and no current signs of toxicity. Respiratory: Chest is non tender, lungs are clear to auscultation. Cardiac: regular rate and rhythm Gastrointestinal: Abdomen is soft and non tender, no masses, bowel sounds normal. Musculoskeletal: Neck: Neck is supple and non tender. Extremities have full range of motion and are non tender. Patient does have some atrophy to the right upper leg, she is complaining some tenderness to palpation. There is no erythema, swelling noted. Skin: No rashes or lesions. DIFFERENTIAL DIAGNOSIS: After history and physical exam differential diagnosis was considered for sepsis, UTI, osteomyelitis. (ELLEN STODDARD) Medical Decision Making Data Points Laboratory Hematology Test 09/25/17 17:25 09/25/17 18:23 09/25/17 18:35 09/25/17 21:03 Erythrocyte Sedimentation Rate 26 mm/HOUR (0-30) Urine Color Aida Urine Clarity Slightly-cloudy Urine pH 5.0 pH (4.8-9.5) Urine Specific [place] 1.027 Urine Protein 30 mg/dL (NEGATIVE) Urine Glucose (UA) 50 mg/dL (NEGATIVE) Urine Ketones Negative mg/dL (NEGATIVE) Urine Blood Negative (NEGATIVE) Urine Nitrite Negative (NEGATIVE) Urine Bilirubin Negative (NEGATIVE) Urine Urobilinogen Negative mg/dL (0.2-1.9) Urine Leukocyte Esterase Negative (NEGATIVE) Urine RBC None /HPF (0-2/HPF) Urine WBC 3 /HPF (0-5/HPF) Urine Squamous Epithelial Cells Few /LPF (NONE-FEW) Urine Bacteria Negative /HPF (NONE-FEW) Urine Hyaline Casts Many /LPF (NONE-FEW) Urine Mucus Few /HPF (NONE-FEW) Lactate 1.6 mmol/L (0.7-2.1) CSF Appearance Clear (CLEAR) CSF Color Colorless (COLORLESS) CSF WBC 2 /mm3 (0-5) CSF RBC 128 /mm3 CSF Glucose 94 mg/dl CSF Lactate Dehydrogenase 203 U/L CSF Total Protein 97 mg/dl (15-50) Haemophilus influenzae B Antigen Negative (NEGATIVE) Neisseria meningitidis A/Y Antigen Negative (NEGATIVE) Neisseria meningitidis C/W135 Ag Negative (NEGATIVE) N. meningitidis B/E.coli K1 Ag Negative (NEGATIVE) Group B Streptococcus Antigen Negative (NEGATIVE) Streptococcus pneumoniae Antigen Negative (NEGATIVE) Chemistry Test 09/25/17 17:25 09/25/17 18:23 09/25/17 18:35 09/25/17 21:03 Erythrocyte Sedimentation Rate 26 mm/HOUR (0-30) Urine Color Aida Urine Clarity Slightly-cloudy Urine pH 5.0 pH (4.8-9.5) Urine Specific [place] 1.027 Urine Protein 30 mg/dL (NEGATIVE) Urine Glucose (UA) 50 mg/dL (NEGATIVE) Urine Ketones Negative mg/dL (NEGATIVE) Urine Blood Negative (NEGATIVE) Urine Nitrite Negative (NEGATIVE) Urine Bilirubin Negative (NEGATIVE) Urine Urobilinogen Negative mg/dL (0.2-1.9) Urine Leukocyte Esterase Negative (NEGATIVE) Urine RBC None /HPF (0-2/HPF) Urine WBC 3 /HPF (0-5/HPF) Urine Squamous Epithelial Cells Few /LPF (NONE-FEW) Urine Bacteria Negative /HPF (NONE-FEW) Urine Hyaline Casts Many /LPF (NONE-FEW) Urine Mucus Few /HPF (NONE-FEW) Lactate 1.6 mmol/L (0.7-2.1) CSF Appearance Clear (CLEAR) CSF Color Colorless (COLORLESS) CSF WBC 2 /mm3 (0-5) CSF RBC 128 /mm3 CSF Glucose 94 mg/dl CSF Lactate Dehydrogenase 203 U/L CSF Total Protein 97 mg/dl (15-50) Haemophilus influenzae B Antigen Negative (NEGATIVE) Neisseria meningitidis A/Y Antigen Negative (NEGATIVE) Neisseria meningitidis C/W135 Ag Negative (NEGATIVE) N. meningitidis B/E.coli K1 Ag Negative (NEGATIVE) Group B Streptococcus Antigen Negative (NEGATIVE) Streptococcus pneumoniae Antigen Negative (NEGATIVE) Urinalysis Test 09/25/17 18:23 Urine Color [place]ida Urine Clarity Slightly-cloudy Urine pH 5.0 pH (4.8-9.5) Urine Specific [place] 1.027 Urine Protein 30 mg/dL (NEGATIVE) Urine Glucose (UA) 50 mg/dL (NEGATIVE) Urine Ketones Negative mg/dL (NEGATIVE) Urine Blood Negative (NEGATIVE) Urine Nitrite Negative (NEGATIVE) Urine Bilirubin Negative (NEGATIVE) Urine Urobilinogen Negative mg/dL (0.2-1.9) Urine Leukocyte Esterase Negative (NEGATIVE) Urine RBC None /HPF (0-2/HPF) Urine WBC 3 /HPF (0-5/HPF) Urine Squamous Epithelial Cells Few /LPF (NONE-FEW) Urine Bacteria Negative /HPF (NONE-FEW) Urine Hyaline Casts Many /LPF (NONE-FEW) Urine Mucus Few /HPF (NONE-FEW) (VIVIANE BHAKTA MD) Microbiology Microbiology Date/Time Source Procedure Growth Status 09/25/17 21:03 Cerebrospinal Fluid Gram Stain - Final Resulted 09/25/17 21:03 Cerebrospinal Fluid CSF Culture Pending Resulted (VIVIANE BHAKTA MD) EKG/Imaging Imaging EXAMINATION: Right femur 2 views. Right knee 4 views. HISTORY: Elevated white count. History of bacteria on hardware. COMPARISON: 09/02/2017. FINDINGS: Surgical changes of right total hip arthroplasty. The femoral and acetabular components appear well seated and demonstrate normal alignment. No acute periprosthetic fracture. Additional lateral plate and screw fixation along the proximal and distal right femoral shaft across an old healed fracture of the mid femur. Hardware demonstrates stable alignment, with stable chronic fracture of the most inferior cortical screw. Cerclage wire present along the proximal femoral shaft. Right knee views demonstrate stable appearance of a right total knee arthroplasty with patellar resurfacing. The femoral and tibial components appear well seated and demonstrate normal alignment. No periprosthetic fracture. Bones of the right hip, femur, and knee are diffusely osteopenic. No aggressive osseous changes to suggest osteomyelitis. No new periprosthetic lucency. No significant knee joint effusion is visualized. IMPRESSION: 1. Stable surgical changes of right hip arthroplasty, right knee arthroplasty, and plate and screw fixation along the right femoral shaft. 2. No acute osseous findings along the right femur or at the right knee. 3. Diffuse osteopenia. No new aggressive osseous changes to suggest osteomyelitis. Report Dictated By: Nicholas Castillo MD at 09/25/2017 7:15 PM Report E-Signed By: Nicholas Castillo MD at 09/25/2017 7:30 PM (ELLEN STODDARD) ED Course/Re-evaluation ED Course Patient was admitted to examine, history and physical were obtained. Differential diagnoses were considered. On examination patient was having some dementia, she was stating and wear that the patient was taught she was having pain. Did look over her skin and did not find any areas of breakdown her concern. Patient had a elevated white count earlier today. We went ahead and checked a lactate, ESR and repeat a urinalysis. Urinalysis was unremarkable, lactate was negative, ESR was also negative. I did get x-rays of the right femur and knee looking for any signs of osteomyelitis which could be the underlying cause of the elevated white count. Patient's family stated that she had had bacteria colonized on her knee replacement in the past. There are no signs of osteomyelitis. I did discuss the case with Dr. Aditya Lorenz, hospitalist, who requested that a lumbar puncture be done. I discussed this with the patient's daughter who verbalized understanding and agreement. A lumbar puncture was done. At the time this dictation we did have the white blood cells back which were only 2. We will go ahead and admit the patient to the hospitalist. I discussed this with the patient and the family and they verbalized understanding and agreement. Decision to Disposition Date: Sep 25, 2017 Decision to Disposition Time: 21:00 (ELLEN STODDARD) Procedure Procedure: Lumbar puncture. Indication: elevated white blood cell count and confusion After verbal informed consent from the patient's medical decision maker, and explaining the risks including infection, bleeding, and neurologic damage, a lumbar puncture was performed after the patient was prepped and draped in the usual fashion. The back was anesthetized with 1% lidocaine. Approximately 4 cc of clear fluid was obtained. Opening pressure was not obtained. There were no complications. The procedure was performed by my nurse practitioner student with my assistance. (VIVIANE BHAKTA MD) Depart Departure Latest Vital Signs Vital Signs Date Time Temp Pulse Resp B/P (MAP) Pulse Ox O2 Delivery O2 Flow Rate FiO2 09/25/17 21:15 84 94 09/25/17 21:00 124/82 (96) 09/25/17 17:22 98.6 20 Room Air (VIVIANE BHAKTA MD) Impression: Primary Impression: Altered mental status Additional Impression: Leukocytosis Condition: Condition Unchanged Disposition: Admitted from ER Referrals: DORIS ADAMSON APRN CHIP BIN OPERATOR-C (PCP) Problem Qualifiers Primary Impression: Altered mental status Altered mental status type: delirium Qualified Codes: R41.0 - Disorientation , unspecified Additional Impression: Leukocytosis Leukocytosis type: bandemia Qualified Codes: D72.825 - Bandemia ELLEN STODDARDP Sep 25, 2017 18:28 VIVIANE BHAKTA MD Sep 25, 2017 21:30
[2017-09-25] MEDS ORDERED: fentaNYL CITR 100 MCG/2 ML AMP IVP ONE ×2 (19:05→20:30)
--- NOTE | 2017-09-25 19:35 | RADIOLOGY IMAGING REPORT ---
FACILITY: [facility] PATIENT NAME: Kerry Giang : 1935 MR: [id number] V: [id number] EXAM DATE: ORDERING PHYSICIAN: ELLEN STODDARD TECHNOLOGIST: Location: [facility] Patient: Kerry Giang : 1935 Visit/Account:[id number] Date of Sevice: 09/25/2017 EXAMINATION: Right femur 2 views. Right knee 4 views. HISTORY: Elevated white count. History of bacteria on hardware. COMPARISON: 09/02/2017. FINDINGS: Surgical changes of right total hip arthroplasty. The femoral and acetabular components appear well s eated and demonstrate normal alignment. No acute periprosthetic fracture. Additional lateral plate and screw fixation along the proximal and distal right femoral shaft across an old healed fracture of the mid femur. Hardware demonstrates stable alignment, with stable chronic fracture of the most inferior cortical screw. Cerclage wire present along the proximal femoral shaft. Right knee views demonstrate stable appearance of a right total knee arthroplasty with patellar resur facing. The femoral and tibial components appear well seated and demonstrate normal alignment. No per iprosthetic fracture. Bones of the right hip, femur, and knee are diffusely osteopenic. No aggressive osseous changes to zavala ggest osteomyelitis. No new periprosthetic lucency. No significant knee joint effusion is visualized. IMPRESSION: 1. Stable surgical changes of right hip arthroplasty, right knee arthroplasty, and plate and screw fi xation along the right femoral shaft. 2. No acute osseous findings along the right femur or at the right knee. 3. Diffuse osteopenia. No new aggressive osseous changes to suggest osteomyelitis. Report Dictated By: Nicholas Castillo MD at 09/25/2017 7:15 PM Report E-Signed By: Nicholas Castillo MD at 09/25/2017 7:30 PM WSN:[id number]
--- NOTE | 2017-09-25 19:35 | RADIOLOGY IMAGING REPORT ---
FACILITY: [facility] [place] PATIENT NAME: Kerry Giang : 1935 MR: [id number] V: [id number] EXAM DATE: ORDERING PHYSICIAN: ELLEN STODDARD TECHNOLOGIST: Location: [facility] [place] Patient: Kerry Giang : 1935 Visit/Account:[id number] Date of Sevice: 09/25/2017 EXAMINATION: Right femur 2 views. Right knee 4 views. HISTORY: Elevated white count. History of bacteria on hardware. COMPARISON: 09/02/2017. FINDINGS: Surgical changes of right total hip arthroplasty. The femoral and acetabular components appear well s eated and demonstrate normal alignment. No acute periprosthetic fracture. Additional lateral plate and screw fixation along the proximal and distal right femoral shaft across an old healed fracture of the mid femur. Hardware demonstrates stable alignment, with stable chronic fracture of the most inferior cortical screw. Cerclage wire present along the proximal femoral shaft. Right knee views demonstrate stable appearance of a right total knee arthroplasty with patellar resur facing. The femoral and tibial components appear well seated and demonstrate normal alignment. No per iprosthetic fracture. Bones of the right hip, femur, and knee are diffusely osteopenic. No aggressive osseous changes to zavala ggest osteomyelitis. No new periprosthetic lucency. No significant knee joint effusion is visualized. IMPRESSION: 1. Stable surgical changes of right hip arthroplasty, right knee arthroplasty, and plate and screw fi xation along the right femoral shaft. 2. No acute osseous findings along the right femur or at the right knee. 3. Diffuse osteopenia. No new aggressive osseous changes to suggest osteomyelitis. Report Dictated By: Nicholas Castillo MD at 09/25/2017 7:15 PM Report E-Signed By: Nicholas Castillo MD at 09/25/2017 7:30 PM WSN:[id number]
[2017-09-25 22:34] VITALS: BP 163/71
[2017-09-25] MEDS ORDERED: VANCOMYCIN(*) 1 GM VIAL 1 GM, VANCOMYCIN (*) 0.5 GM VIAL 0.25 GM in NS(*) 0.9% 250 ML B... IVPB ONE (22:40)
[2017-09-25] MEDS ORDERED: DEXAMETHASONE SOD 4 MG/ML VIAL IVP ONE (22:45)
[2017-09-25] MEDS ORDERED: VANCOMYCIN 0.5 GM VIAL ONE (23:03)
[2017-09-25] MEDS ORDERED: ACYCLOVIR 500 MG/10 ML VIAL ONE (23:04)
[2017-09-25] MEDS ORDERED: NS(*) 0.9% 100 ML BAG 100 ML ONE (23:04)
[2017-09-25] MEDS ORDERED: VANCOMYCIN 1 GM VIAL ONE (23:04)
[2017-09-25] MEDS ORDERED: NS(*) 0.9% 250 ML BAG 250 ML ONE (23:04)
[2017-09-25] MEDS ORDERED: INSULIN HUM LISPRO 100 UN/ML 3 ML VIAL SUBQ ONE (23:05)
--- NOTE | 2017-09-25 23:15 | History & Physical ---
History of Present Illness Chief Complaint Confused History of Present Illness 81yo female with PMHx significant for type 2 DM, dementia, hypothyroidism, HTN. She currently lives at [facility]. Her family has noted steady decline in her cognitive status over the past several months. She became much more confused over the past few days. Her functional status declined as well. She has not been eating or drinking much for past 2-3 days. Apparently, she had not complained of any specific complaints. No definite fevers were noted. Urine was noted to be cloudy, but no incontinence/frequency noted. No rashes other than some mild erythema in her inguinal skin folds. No cough or sputum noted. She had not c/o headache. No N/V/diarrhea was noted. She was evaluated in the ER 2 days ago and felt to possibly have sinusitis and started on oral Levaquin. She was re-evaluated in the clinic and again in the ER today. She was still confused. Her WBC count was significantly elevated. The remainder of her evaluation was rather unremarkable. She was recommended for admission. History Problems: (1) History of knee replacement Status: Resolved (2) History of hip replacement Status: Resolved (3) Hypercholesterolemia Status: Chronic (4) Osteoarthrosis Status: Chronic (5) Sleep apnea Status: Chronic (6) Neuropathy Status: Chronic (7) Right leg weakness Onset Date: 06/27/2014 Status: Chronic (8) Edema Status: Resolved (9) Dementia Status: Chronic (10) Depression Status: Chronic (11) Type II diabetes mellitus Status: Chronic (12) Hypertension, benign Status: Chronic (13) Hypothyroidism Status: Chronic (14) Osteopenia Status: Chronic (15) Ventral hernia Status: Chronic Home Meds Active Scripts Fluticasone Prop 50 Mcg Ns (FLONASE 50 MCG NS) 16 Gm [place].susp, 1 SPRAY NS BID for 14 Days, BOT Prov:RYAN LLOYD FIRER BOILER-C 09/23/17 Levofloxacin 500 Mg Tab (LEVAQUIN 500 MG TAB) 500 Mg Tablet, 500 MG PO DAILY for 7 Days, #7 TAB Prov:RYAN LLOYD FIRER BOILER-C 18 Albuterol Sulfate 0.083% (ALBUTEROL SULFATE 0.083%) 2.5 Mg/3 Ml Vial.neb, 2.5 MG INH Q4-6H Y for WHEEZING, #1 BOX 0 Refills Prov:DORIS ADAMSON APRNP-C 08/04/17 Sertraline Hcl (SERTRALINE HCL) 100 Mg Tablet, 1 TAB PO QDAY, #30 TAB 5 Refills Prov:DORIS ADAMSON APRN RAMPMAN-C 07/09/17 Mirtazapine (MIRTAZAPINE) 15 Mg Tablet, 1 TAB PO QHS, #30 TAB 5 Refills Prov:DORIS ADAMSON APRNP-C 06/19/17 Tramadol Hcl (TRAMADOL HCL) 50 Mg Tablet, 1 TAB PO 3-4XD for PAIN, #120 TAB 5 Refills Take one tab 3 times daily scheduled and one tab as needed for pain during the night Prov:DORIS ADAMSON APRNP-C 05/23/17 Simethicone (GAS-X) 125 Mg Tab.chew, 1 TAB PO TIDAC, #90 TAB.CHEW 5 Refills Prov:DORIS ADAMSON APRNP-C 05/23/17 Acetaminophen (TYLENOL EXTRA STRENGTH) 500 Mg Tablet, 1 TAB PO TID, #90 TAB 11 Refills Prov:DORIS ADAMSON APRN RAMPMAN-C 05/23/17 Levothyroxine Sodium (LEVOTHYROXINE SODIUM) 75 Mcg Tablet, 1 TAB PO QDAY, #90 TAB 4 Refills Prov:DORIS ADAMSON APRNP-C 05/23/17 Donepezil Hcl (DONEPEZIL HCL) 10 Mg Tablet, 1 TAB PO QDAY, #90 TAB 3 Refills Prov:DORIS ADAMSON APRN RAMPMAN-C 05/23/17 Omeprazole (OMEPRAZOLE) 20 Mg Capsule.dr, 1 CAP PO QDAY, #90 TAB 3 Refills Prov:DORIS ADAMSON APRNP-C 05/23/17 Cholecalciferol (Vitamin D3) (VITAMIN D3) 2,000 Unit Capsule, 1 CAP PO DAILY, # 90 CAPSULE 4 Refills Prov:DORIS ADAMSON APRNP-C 04/24/17 Doxycycline Hyclate (DOXYCYCLINE HYCLATE) 100 Mg Tablet, 1 TAB PO QDAY, #30 TAB 9 Refills Prov:DORIS ADAMSON APRN RAMPMAN-C 04/24/17 Quinapril Hcl (QUINAPRIL HCL) 20 Mg Tablet, 1 TAB PO QDAY, #30 TAB 11 Refills Prov:DORIS ADAMSON APRN 04/24/17 Nystatin 100,000 Unit/Gm Top Powder (NYSTATIN 100,000 UNIT/GM TOP POWDER) 15 Gm Powder, 1 DEVON TP BID Y for rash under breasts for 14 Days, #60 GM 2 Refills Apply to rash twice daily until resolved - notify provider if not improved in 2 weeks. Prov:DORIS ADAMSON APRN 03/07/17 [place] Tar (T-Gel) 0.5 % Shampoo, 1 DEVON TOP weekly, #1 BOTTLE 3 Refills Prov:DORIS ADAMSON APRN 01/14/17 Trazodone Hcl (TRAZODONE HCL) 50 Mg Tablet, 0.5 TAB PO QHS, #45 TAB 1 Refill Prov:DORIS ADAMSON APRN 01/14/17 Loratadine (LORATADINE) 10 Mg Tablet, 1 TAB PO DAILY, #90 TAB 4 Refills Prov:ANGEL LUIS COLINDRES MD 08/23/16 Calcium Carbonate (CALCIUM) 600 Mg Tablet, 1 TAB PO BID, #30 TAB 11 Refills Prov:DORIS ADAMSON APRN 11/07/15 Lancets (ONE TOUCH DELICA) 1 Each Each, 1 STRIP MC DAILY, #100 2 Refills Prov:DORIS ADAMSON APRN 11/18/14 Lancing Device/Lancets (ONE TOUCH DELICA LANCING DEV) 1 Each Kit, 1 STRIP MC DAILY, #100 2 Refills Prov:DORIS ADAMSON APRN 11/18/14 Lancets (ONE TOUCH DELICA) 1 Each Each, 1 EACH MC, #1 Prov:DORIS ADAMSON APRN 11/18/14 Discontinued Scripts Diphenhydramine Hcl (BENADRYL) 25 Mg Capsule, 25 MG PO HS, #14 CAPSULE Prov:RYAN LLYOD 09/23/17 Allergies: Coded Allergies: codeine (Unverified Allergy, Mild, 09/25/17) Beef Containing Products (Unverified Allergy, Unknown, 09/25/17) Morpholine Analogues (Unverified Allergy, Unknown, confusion, 09/25/17) mepivacaine (Unverified Allergy, Unknown, rash and mild swelling, 09/25/17) zolpidem (Unverified Allergy, Unknown, 09/25/17) Uncoded Allergies: MOLD (Allergy, Unknown, 10/26/14) Patient History: FH: [place] (myocardial infarction) FATHER, , Age:84 FH: arthritis BROTHER OR SISTER FH: dementia MOTHER, , Age:84 FH: diabetes mellitus FATHER, , Age:84 FHx: stroke FATHER, , Age:84 TIAs MOTHER, , Age:84 Other Social/Family Hx She currently lives at [facility]. Hx Smoking: No Smoking Status: Never Smoker Hx Alcohol Use: No Review of Systems Constitutional: No Fever, No Chills, No Night Sweats Neurological: Confusion, Weakness Cardiovascular: Chest Pain Respiratory: Shortness of Breath Gastrointestinal: No Nausea, No Vomiting, No Diarrhea Genitourinary: No Dysuria, No Urinary Incontinence Exam Vital Signs Vital Signs Date Time Temp Pulse Resp B/P (MAP) Pulse Ox O2 Delivery O2 Flow Rate FiO2 09/25/17 22:05 78 99 09/25/17 22:00 140/94 (109) 09/25/17 17:22 98.6 20 Room Air General Appearance: Alert, Awake (but somewhat confused/she is able to answer some simple questions) Neuro: Other (she is able to move all four extremities fairly normally) Eyes: PERRLA ENT: Oropharynx Clear Neck: No Masses Cardiovascular: Regular Rate and Rhythm (no obvious murmur), No Edema, No JVD Respiratory: Other (few rales at left lung base) Chest: No Tenderness GI: Abd Soft and Non-Tender : No CVA Tenderness Lymph: No Adenopathy Extremities: Warm, Perfused Integumentary: Generalized Fragile Skin, Other (some candidal changes in the inguinal folds) Medical Decision Making Data Points Item Value Date Time White Blood Count 37.0 k/uL *H 09/25/17 1415 Hemoglobin 13.6 g/dL 09/25/17 1415 Hematocrit 40.9 % 09/25/17 1415 Platelet Count 197 K/uL 09/25/17 1415 Erythrocyte Sedimentation Rate 26 mm/HOUR 09/25/17 1725 Sodium Level 131 mmol/L L 09/25/17 1415 Potassium Level 3.6 mmol/L 09/25/17 1415 Chloride Level 96 mmol/L L 09/25/17 1415 Carbon Dioxide Level 20 mmol/L L 09/25/17 1415 Blood Urea Nitrogen 31 mg/dl H 09/25/17 1415 Creatinine 1.20 mg/dl H 09/25/17 1415 Glomerular Filtration Rate Calc 43.1 09/25/17 1415 Random Glucose 203 mg/dl H 09/25/17 1415 Calcium Level 10.9 mg/dl H 09/25/17 1415 Total Bilirubin 0.6 mg/dl 09/25/17 1415 Aspartate Amino Transf (AST/SGOT) 19 U/L 09/25/17 1415 Alanine Aminotransferase (ALT/SGPT) 24 U/L 09/25/17 1415 Alkaline Phosphatase 112 U/L 09/25/17 1415 Total Protein 5.7 gm/dl L 09/25/17 1415 Albumin 3.3 g/dl L 09/25/17 1415 C-Reactive Protein 2.0 mg/dl H 09/25/17 1425 Lactate 1.6 mmol/L 09/25/17 1835 Urine Color Aida 09/25/17 1823 Urine Clarity Slightly-cloudy 09/25/171822 Urine pH 5.0 pH 09/25/17 1823 Urine Specific [place] 1.027 09/25/17 1823 Urine Protein 30 mg/dL 09/25/17 1823 Urine Glucose (UA) 50 mg/dL H 09/25/17 1823 Urine Ketones Negative mg/dL 09/25/17 1823 Urine Blood Negative 09/25/17 1823 Urine Nitrite Negative 09/25/17 1823 Urine Bilirubin Negative 09/25/17 1823 Urine Urobilinogen Negative mg/dL 09/25/17 1823 Urine Leukocyte Esterase Negative 09/25/17 1823 Urine RBC None /HPF 09/25/17 1823 Urine WBC 3 /HPF 09/25/17 1823 Urine Squamous Epithelial Cells Few /LPF 09/25/17 1823 Urine Bacteria Negative /HPF 09/25/17 1823 Urine Hyaline Casts Many /LPF H 09/25/17 1823 Urine Mucus Few /HPF 09/25/171822 CSF Appearance Clear 09/25/172102 CSF Color Colorless 09/25/172102 CSF WBC 2 /mm3 09/25/172102 CSF RBC 128 /mm3 09/25/172102 CSF Glucose 94 mg/dl 09/25/172102 CSF Lactate Dehydrogenase 203 U/L 09/25/172102 CSF Total Protein 97 mg/dl H 09/25/172102 Assessment and Plan Problems: (1) Altered mental status Status: Acute Assessment & Plan: Given her significant leukocytosis, concern for possible infectious etiology. Cultures of blood, urine, and CSF have been done. Will also check influenza and CSF herpes PCR. Will cover empirically for possibility of meningitis while we await culture results. Will place on high dose Rocephin, vancomycin, acyclovir, Decadron. It certainly is possible the Levaquin as well as other medications may be contributing to her confusion as well. Will monitor closely and modify therapy as needed. (2) Elevated WBC count Status: Acute Assessment & Plan: Her count was normal just 10 days ago. It has risen significantly to 37K today. No definitive source as of yet. She will be on empiric coverage as noted above. Await cultures. (3) Type II diabetes mellitus Status: Chronic Assessment & Plan: Will place on ADA diet, watch glucoses, and use SSI as needed. (4) Hypothyroidism Status: Chronic Assessment & Plan: Continue L-thyroxine. (5) Hypertension, benign Status: Chronic Assessment & Plan: Will hold her usual regimen (quinapril) initially. Monitor closely and resume meds as needed. Copies to: DORIS ADAMSON APRN RAMPMAN-C Venous Thromboembolism Antithrombotics Is Pt On Any Antithrombotics?: No (recent lumbar puncture) Exam Sepsis Risk: No Definite Risk Problem Qualifiers (1) Altered mental status: Altered mental status type: delirium Qualified Codes: R41.0 - Disorientation , unspecified YOLANDA LORENZ MD Sep 25, 2017 23:15
--- NOTE | 2017-09-25 23:20 | RADIOLOGY IMAGING REPORT ---
FACILITY: [facility] PATIENT NAME: Kerry Giang : 1935 MR: [id number] V: [id number] EXAM DATE: ORDERING PHYSICIAN: YOLANDA LORENZ TECHNOLOGIST: Location: [facility] [place] Patient: Kerry Giang : 1935 Visit/Account:[id number] Date of Sevice: 09/25/2017 CHEST SINGLE AP History: Rales in left lung Comparison 09/23/2017. FINDINGS: Mild left lung base atelectasis or infiltrate with small pleural effusion. Right lung is clear. Heart size within normal limits. No pneumothorax. IMPRESSION: Mild left lung base atelectasis or infiltrate with small pleural effusion. Report Dictated By: Duncan Pierre MD at 09/25/2017 11:16 PM Report E-Signed By: uDncan Pierre MD at 09/25/2017 11:17 PM WSN:[id number]
[2017-09-25] MEDS: NS(*) 0.9% 1000 ML BAG 1,000 ML IV PRN (23:34)
[2017-09-26] VITALS (7 sets, daily range): BP systolic 140–185; BP diastolic 54–108; Ht 149.9 cm; Wt 53.1 kg
[2017-09-26] MEDS ORDERED: NS 0.9% IVPB SCH
[2017-09-26] MEDS ORDERED: ACYCLOVIR IVPB SCH
[2017-09-26] MEDS ORDERED: cefTRIAXone 2 GM VIAL IVP SCH ×2 (00:30→21:00)
[2017-09-26] MEDS ORDERED: ACYCLOVIR 500 MG/10 ML VIAL ONE (00:49)
[2017-09-26] MEDS ORDERED: DEXAMETHASONE SOD 4 MG/ML VIAL IVP SCH (05:00)
[2017-09-26 06:16] LABS: PLATELET COUNT, AUTOMATED 165 K/uL (150-450)
[2017-09-26] MEDS: INSULIN HUM LISPRO 100 UN/ML 3 ML VIAL SUBQ PRN ×4 (07:18→21:24)
[2017-09-26] MEDS: ACETAMINOPHEN 325 MG TAB PO PRN ×2 (07:51→19:36)
[2017-09-26] MEDS: LEVOTHYROXINE SOD 0.075 MG TAB PO SCH (08:24)
[2017-09-26] MEDS: NYSTATIN 100,000 U/GM PWD 15GM TP SCH ×2 (08:28→21:22)
[2017-09-26] MEDS: ACYCLOVIR IVPB SCH ×2 (08:36→16:18)
[2017-09-26] MEDS: NS 0.9% IVPB SCH ×2 (08:36→16:18)
[2017-09-26] MEDS ORDERED: VANCOMYCIN 1 GM ADDVIAL 1 GM in NS(*) 0.9% 250 ML ADDVAN BAG 250 ML IVPB SCH (11:00)
--- NOTE | 2017-09-26 12:02 | Hospitalist Progress Note ---
Subjective Progress Notes Subjective This patient was admitted for concerns of meningitis. She had no acute issues overnight. Patient Complains of: Cardiovascular: No: Chest Pain Respiratory: No: Shortness of Breath Physical Exam Vital Signs Date Time Temp Pulse Resp B/P (MAP) Pulse Ox O2 Delivery O2 Flow Rate FiO2 09/26/17 10:46 98.6 101 16 140/54 (82) 96 Room Air Intake and Output 09/27/17 07:00 Intake Total 351 ml Balance 351 ml Intake Oral 240 ml IV Total 111 ml # Voids 1 Neuro: No Gross deficits Eyes: PERRLA Cardiovascular: Regular Rate and Rhythm Respiratory: Clear to Auscultation Extremities: No Edema Integumentary: No Cyanosis Result Diagram: 09/26/1744 09/26/17543 Item Value Date Time Haemophilus influenzae B Antigen Negative 09/25/172102 Neisseria meningitidis A/Y Antigen Negative 09/25/172102 Neisseria meningitidis C/W135 Ag Negative 09/25/172102 N. meningitidis B/E.coli K1 Ag Negative 09/25/172102 Group B Streptococcus Antigen Negative 09/25/172102 Streptococcus pneumoniae Antigen Negative 09/25/172102 Influenza Virus Type A (PCR) Negative 09/25/172249 Influenza Virus Type B (PCR) Negative 09/25/172249 Item Value Date Time Blood Culture - Preliminary Resulted 09/25/17 2155 Blood NO GROWTH AFTER 1 DAY, REINCUBATED Gram Stain - Final Resulted 09/25/17 210 Cerebrospinal Fluid Blood Culture - Preliminary Resulted 09/25/17 1835 Blood NO GROWTH AFTER 1 DAY, REINCUBATED Urine Culture - Preliminary Resulted 09/25/17 1823 Cath Urine NO GROWTH SO FAR, SET LATE. REINCUBATED Assessment and Plan Problems: (1) Altered mental status Status: Acute Assessment & Plan: She was admitted after outpatient lab testing indicated a rising WBC. To this point she has had no localizing symptoms of infection and the family also notes that she was asymptomatic before coming into the hospital. She was placed on empiric treatment with ceftriaxone, vancomycin, and acyclovir. Her cultures have all been negative. The results of her CSF showed an elevated protein, but this appears to be a traumatic tap with elevated RBC's. The results of her HSV are still pending. We have stopped the vancomycin and decreased the dose of her ceftriaxone. We will plan to continue the acyclovir until the HSV studies are back. She was receiving dexamethasone, but this too has been stopped. (2) Elevated WBC count Status: Acute Assessment & Plan: As above. (3) Type II diabetes mellitus Status: Chronic Assessment & Plan: She is on sliding scale level #2. (4) Hypothyroidism Status: Chronic Assessment & Plan: She is on chronic treatment with Synthroid. (5) Hypertension, benign Status: Chronic Assessment & Plan: She is on chronic treatment with quinapril. Exam Sepsis Risk: Severe Sepsis Risk Problem Qualifiers (1) Altered mental status: Altered mental status type: delirium Qualified Codes: R41.0 - Disorientation , unspecified SELINA RAPHAEL DO Sep 26, 2017 12:02
[2017-09-26] MEDS: NS(*) 0.9% 1000 ML BAG 1,000 ML IV PRN (13:01)
--- NOTE | 2017-09-26 13:53 | Medical Nutrition Therapy ---
Nutrition Anthropometrics Height (Inches): 59.00 Height (Calculated Centimeters: 149.029588 Weight (Pounds): 117 Weight (Calculated Kilograms): 53.070 BMI Calculated: 23.63 Mathew Nutrition Score: Adequate Mathew Nutrition Risk Score: 17 Dietary Referral Nutrition Risk Factors: Nutrition Risk Comment: Nutritional Diagnosis Nutritional Risk Acuity 2: Pr Appetite > 3d Past Medical History: dementia, depression, T2DM, HTN, hypothyroid Nutritional Acuity: 2-Moderate Nutrition Diagnosis: Inadequate Food Intake Nutrition Etiology: Psychological Issues Nutrition Problem/Etiology/Sym: due to altered mental status causing poor PO intake for the past 2-3 days. Energy Requirement: 1267 (kcal/day (24 kcal/kg)- [place] St Jeor RMR 1057 AF 1.2 IF 1.0) Protein Requirement: 42 (g/day (0.8 g/kg)) Fluid Requirement: 1325 (mL/day (25 mL/kg)) Diet Type: Diabetic Nutrition Intervention: Cont diet as ordered, Encourage intake Optional Order Time?: No Nutrition Monitoring & Eval RD Patient Assessment Time: [address] Assessment Type: RD Screen Patient Nutrition Acuity: 2-Moderate Follow Up Date: Sep 30, 2017 Nutritional Comment: 09/26 Pt admitted for altered mental status. Per physician note, pt has had poor intake for the past 2-3 days. Pt currently on a diabetic diet order with no intakes recorded. Pt inappropriate for interview at this time due to pt experiencing confusion. BUN 24, alb 2.8, NA 134. CHEPE DALLAS Sep 26, 2017 10:31
[2017-09-26] MEDS ORDERED: HALOPERIDOL LACT 5 MG/ML VIAL IM ONE ×3 (15:25→17:20)
[2017-09-27] MEDS: NS(*) 0.9% 1000 ML BAG 1,000 ML IV PRN (00:41)
[2017-09-27] MEDS: NS 0.9% IVPB SCH ×2 (01:08→11:09)
[2017-09-27] MEDS: ACYCLOVIR IVPB SCH ×2 (01:08→11:09)
[2017-09-27] MEDS: ACETAMINOPHEN 325 MG TAB PO PRN ×2 (01:57→08:13)
[2017-09-27 03:20] VITALS: BP 171/104
[2017-09-27 05:29] LABS: PLATELET COUNT, AUTOMATED 151 K/uL (150-450)
[2017-09-27] MEDS ORDERED: KCL (*) 20 MEQ/100 ML PREMIX 100 ML IV ONE ×2 (06:00→09:00)
[2017-09-27] MEDS: LEVOTHYROXINE SOD 0.075 MG TAB PO SCH (08:14)
[2017-09-27] MEDS: NYSTATIN 100,000 U/GM PWD 15GM TP SCH (08:18)
[2017-09-27] MEDS ORDERED: QUINAPRIL HCL 20 MG TAB PO SCH ×2 (09:00→21:00)
[2017-09-27] MEDS ORDERED: KCL/NS* 20 MEQ/1000 ML PREMIX 1,000 ML IV SCH (10:51)
[2017-09-27] MEDS ORDERED: KETOROLAC 30 MG/ML VIAL IVP PRN (10:55)
[2017-09-27] MEDS ORDERED: HALOPERIDOL LACT 5 MG/ML VIAL IM ONE ×2 (12:25→22:40)
[2017-09-27] MEDS ORDERED: HALOPERIDOL LACT 5 MG/ML VIAL IM PRN ×2 (14:00→22:50)
--- NOTE | 2017-09-27 16:27 | Hospitalist Progress Note ---
Subjective Progress Notes Subjective Mrs. Giang is an 81y.o female with PMHx significant for type 2 DM, dementia, DEWAYNE, Neuropathy, Depression, Hypothyroidism, HTN. She currently lives at [facility]. Her family has noted steady decline in her cognitive status over the past several months. She became much more confused over the past few days. Her functional status declined as well. She has not been eating or drinking much for past 2-3 days. Apparently, she had not complained of any specific complaints. No definite fevers were noted. Urine was noted to be cloudy, but no incontinence/frequency noted. No rashes other than some mild erythema in her inguinal skin folds. No cough or sputum noted. She had not c/o headache. No N/V/diarrhea was noted. She was evaluated in the ER 2 days ago and felt to possibly have sinusitis and started on oral Levaquin. She was re-evaluated in the clinic and again in the ER today. She was still confused. Her WBC count was significantly elevated. The remainder of her evaluation was rather unremarkable. She was recommended for admission. 09/27: She underwent multiple tests including LP but no conclusive evidence of any obvious infectious source. Her CSF is pending for Herpes. She is currently on Acyclovir and Rocephin.wit no significant improvement in her mental status. Today family decided to place her in comfort care and remove her all the medications except MSO4 and Haldol for comfort care. Family will arrange for Hospice on Friday. Her K level is low 2.9 and her WBC were 23.3K Patient Complains of: Neurological: Confusion, No: Weakness, Dizziness Cardiovascular: No: Chest Pain, Palpitations Respiratory: No: Cough Gastrointestinal: No Nausea, No Vomiting Genitourinary: No Hematuria Musculoskeletal: Impaired Mobility, No: Pain Physical Exam Vital Signs Date Time Temp Pulse Resp B/P (MAP) Pulse Ox O2 Delivery O2 Flow Rate FiO2 09/27/17 07:35 96 Room Air 09/27/17 04:30 90 09/27/17 03:20 97.3 24 171/104 (126) Intake and Output 09/28/17 07:00 Intake Total 0 ml Balance 0 ml Intake Oral 0 ml General Appearance: Alert, Other (severely demented) Neuro: No Gross deficits Eyes: PERRLA Cardiovascular: Normal Rhythm & Peripheral Pulses Respiratory: No Respiratory Distress GI: Soft and Non-Tender Extremities: Soft and Non Tender Psych: Other (confused) Result Diagram: 09/27/17 0515 09/27/17 0515 Assessment and Plan Problems: (1) Altered mental status Status: Acute Assessment & Plan: She was admitted after outpatient lab testing indicated a rising WBC. To this point she has had no localizing symptoms of infection and the family also notes that she was asymptomatic before coming into the hospital. She was placed on empiric treatment with ceftriaxone, vancomycin, and acyclovir. Her cultures have all been negative. The results of her CSF showed an elevated protein, but this appears to be a traumatic tap with elevated RBC's. The results of her HSV are still pending. We have stopped the vancomycin and decreased the dose of her ceftriaxone. We will plan to continue the acyclovir until the HSV studies are back. She was receiving dexamethasone, but this too has been stopped. 09/27: Family decided to place her in comfort and remove her all the medications except for comfort. I will start MSO4 and Haldol as needed. Plan for Hospice on Friday (2) Elevated WBC count Status: Acute Assessment & Plan: As above. (3) Type II diabetes mellitus Status: Chronic Assessment & Plan: She is on sliding scale level #2. (4) Hypothyroidism Status: Chronic Assessment & Plan: She is on chronic treatment with Synthroid. (5) Hypertension, benign Status: Chronic Assessment & Plan: She is on chronic treatment with quinapril. Condition unchanged Time Spent on Plan of Care: < 30 min Copies to: DORIS ADAMSON APRN [employer]-C Exam Sepsis Risk: Severe Sepsis Risk Problem Qualifiers (1) Altered mental status: Altered mental status type: delirium Qualified Codes: R41.0 - Disorientation , unspecified CORY ANDERSON MD Sep 27, 2017 16:27
[2017-09-27] MEDS: MORPHINE 2 MG/ML SYR IVP PRN ×4 (19:21→23:00)
[2017-09-27] MEDS ORDERED: cefTRIAXone(*) 2 GM VIAL 2 GM in NS(*) 0.9% 100 ML ADDVANT BAG 100 ML IVPB SCH (21:00)
[2017-09-28 05:48] LABS: PLATELET COUNT, AUTOMATED 168 K/uL (150-450)
[2017-09-28] MEDS ORDERED: LEVOTHYROXINE SOD 0.075 MG TAB PO SCH (06:00)
[2017-09-28 08:11] VITALS: BP 188/101
--- NOTE | 2017-09-28 12:13 | Hospitalist Progress Note ---
Subjective Progress Notes Subjective Mrs. Giang is an 81y.o female with PMHx significant for type 2 DM, dementia, DEWAYNE, Neuropathy, Depression, Hypothyroidism, HTN. She currently lives at [facility]. Her family has noted steady decline in her cognitive status over the past several months. She became much more confused over the past few days. Her functional status declined as well. She has not been eating or drinking much for past 2-3 days. Apparently, she had not complained of any specific complaints. No definite fevers were noted. Urine was noted to be cloudy, but no incontinence/frequency noted. No rashes other than some mild erythema in her inguinal skin folds. No cough or sputum noted. She had not c/o headache. No N/V/diarrhea was noted. She was evaluated in the ER 2 days ago and felt to possibly have sinusitis and started on oral Levaquin. She was re-evaluated in the clinic and again in the ER today. She was still confused. Her WBC count was significantly elevated. The remainder of her evaluation was rather unremarkable. She was recommended for admission. 09/27: She underwent multiple tests including LP but no conclusive evidence of any obvious infectious source. Her CSF is pending for Herpes. She is currently on Acyclovir and Rocephin.wit no significant improvement in her mental status. Today family decided to place her in comfort care and remove her all the medications except MSO4 and Haldol for comfort care. Family will arrange for Hospice on Friday. Her K level is low 2.9 and her WBC were 23.3K 09/28: Yesterday family decided to place the patient to comfort care and they will arrange hospice care on Friday. Her one BCX bottle came back positive for GPC but family has stopped her all antibiotics. She is currently on MSO4 and Haldol and she is much comfortable. More awake and alert with some appetite. Patient Complains of: Neurological: Confusion, Weakness Cardiovascular: No: Chest Pain, Palpitations Respiratory: No: Cough, Congestion, Shortness of Breath Gastrointestinal: No Nausea, No Vomiting Genitourinary: No Dysuria, No Hematuria Musculoskeletal: Impaired Mobility, No: Pain, Sprain Physical Exam Vital Signs Date Time Temp Pulse Resp B/P (MAP) Pulse Ox O2 Delivery O2 Flow Rate FiO2 09/28/17 08:32 94 09/28/17 08:11 98.2 24 188/101 (130) Room Air 09/27/17 04:30 90 Intake and Output 09/29/17 07:00 Intake Total 200 ml Balance 200 ml Intake Oral 200 ml # Voids 1 # Bowel Movements 1 General Appearance: Alert, Awake, No Acute Distress, Afebrile Neuro: No Gross deficits Cardiovascular: Normal Rhythm & Peripheral Pulses GI: Soft and Non-Tender Extremities: Edema Psych: Other (not fully oriented) Result Diagram: 09/28/1712 09/28/17511 Assessment and Plan Problems: (1) Altered mental status Status: Acute Assessment & Plan: She was admitted after outpatient lab testing indicated a rising WBC. To this point she has had no localizing symptoms of infection and the family also notes that she was asymptomatic before coming into the hospital. She was placed on empiric treatment with ceftriaxone, vancomycin, and acyclovir. Her cultures have all been negative. The results of her CSF showed an elevated protein, but this appears to be a traumatic tap with elevated RBC's. The results of her HSV are still pending. We have stopped the vancomycin and decreased the dose of her ceftriaxone. We will plan to continue the acyclovir until the HSV studies are back. She was receiving dexamethasone, but this too has been stopped. 09/27: Family decided to place her in comfort and remove her all the medications except for comfort. I will start MSO4 and Haldol as needed. Plan for Hospice on Thursday 09/28: I will continue her palliative care for now until hospice gets arranged. (2) Elevated WBC count Status: Acute Assessment & Plan: As above. (3) Type II diabetes mellitus Status: Chronic Assessment & Plan: She is on sliding scale level #2. (4) Hypothyroidism Status: Chronic Assessment & Plan: She is on chronic treatment with Synthroid. (5) Hypertension, benign Status: Chronic Assessment & Plan: She is on chronic treatment with quinapril. Time Spent on Plan of Care: < 30 min Copies to: DORIS ADAMSON APRN TRANSITIONAL LIVING SPECIALIST-C Exam Sepsis Risk: Severe Sepsis Risk Problem Qualifiers (1) Altered mental status: Altered mental status type: delirium Qualified Codes: R41.0 - Disorientation , unspecified CORY ANDERSON MD Sep 28, 2017 12:13
[2017-09-28] MEDS: MORPHINE 2 MG/ML SYR IVP PRN (13:42)
[2017-09-29] MEDS: MORPHINE 2 MG/ML SYR IVP PRN ×3 (08:22→16:21)
--- NOTE | 2017-09-29 11:23 | Hospitalist Progress Note ---
Subjective Progress Notes Subjective She is unable to stay awake during exam this morning. Patient Complains of: Cardiovascular: No: Chest Pain Respiratory: No: Shortness of Breath Physical Exam Vital Signs Date Time Temp Pulse Resp B/P (MAP) Pulse Ox O2 Delivery O2 Flow Rate FiO2 09/28/17 23:36 94 09/28/17 23:36 103 20 Room Air 09/28/17 08:11 98.2 188/101 (130) Intake and Output 09/30/17 07:00 Intake Total 118 ml Balance 118 ml Intake Oral 118 ml General Appearance: No Acute Distress, Afebrile Neuro: Other (unable to stay awake during exam) Cardiovascular: Regular Rate and Rhythm Respiratory: No Respiratory Distress, Clear to Auscultation Extremities: No Edema Psych: Appropriate Mood & Affect Result Diagram: 09/28/1751109/28/17511 Assessment and Plan Problems: (1) Altered mental status Status: Acute Assessment & Plan: She was admitted after outpatient lab testing indicated a rising WBC. To this point she has had no localizing symptoms of infection and the family also notes that she was asymptomatic before coming into the hospital. She was placed on empiric treatment with ceftriaxone, vancomycin, and acyclovir, which were stopped. Her cultures have grown streptococcus intermedius. The results of her CSF showed an elevated protein, but this appears to be a traumatic tap with elevated RBC's. At this time, the family would like to get echocardiogram to assess for endocarditis. We will start her on Rocephin at this time, per family request until results are back of the echo. (2) Dementia Status: Chronic Assessment & Plan: She has progressive dementia, which has been worsening over the last few months. (3) Elevated WBC count Status: Acute Assessment & Plan: As above. (4) Type II diabetes mellitus Status: Chronic Assessment & Plan: She is on sliding scale level #2. (5) Hypothyroidism Status: Chronic Assessment & Plan: She is on chronic treatment with Synthroid. (6) Hypertension, benign Status: Chronic Assessment & Plan: She is on chronic treatment with quinapril. Exam Sepsis Risk: No Definite Risk Problem Qualifiers (1) Altered mental status: Altered mental status type: delirium Qualified Codes: R41.0 - Disorientation , unspecified CURTIS EVANSP Sep 29, 2017 11:23
[2017-09-29] MEDS: cefTRIAXone 2 GM VIAL IVP SCH (11:55)
[2017-09-29 14:46] VITALS: BP 176/97
[2017-09-29 20:28] VITALS: BP 173/66
[2017-09-30] MEDS: MORPHINE 2 MG/ML SYR IVP PRN ×5 (01:21→16:30)
[2017-09-30 05:57] LABS: PLATELET COUNT, AUTOMATED 207 K/uL (150-450)
[2017-09-30] MEDS ORDERED: LEVOFLOXACIN 500 MG TAB PO SCH (09:30)
[2017-09-30] MEDS ORDERED: ALBUTEROL 2.5 MG/3 ML NEB INH PRN (09:30)
--- NOTE | 2017-09-30 11:34 | Hospitalist Progress Note ---
Subjective Progress Notes Subjective Mrs. Giang is an 81y.o female with PMHx significant for type 2 DM, dementia, DEWAYNE, Neuropathy, Depression, Hypothyroidism, HTN. She currently lives at [facility]. Her family has noted steady decline in her cognitive status over the past several months. She became much more confused over the past few days. Her functional status declined as well. She has not been eating or drinking much for past 2-3 days. Apparently, she had not complained of any specific complaints. No definite fevers were noted. Urine was noted to be cloudy, but no incontinence/frequency noted. No rashes other than some mild erythema in her inguinal skin folds. No cough or sputum noted. She had not c/o headache. No N/V/diarrhea was noted. She was evaluated in the ER 2 days ago and felt to possibly have sinusitis and started on oral Levaquin. She was re-evaluated in the clinic and again in the ER today. She was still confused. Her WBC count was significantly elevated. The remainder of her evaluation was rather unremarkable. She was recommended for admission. 09/27: She underwent multiple tests including LP but no conclusive evidence of any obvious infectious source. Her CSF is pending for Herpes. She is currently on Acyclovir and Rocephin.wit no significant improvement in her mental status. Today family decided to place her in comfort care and remove her all the medications except MSO4 and Haldol for comfort care. Family will arrange for Hospice on Friday. Her K level is low 2.9 and her WBC were 23.3K 09/28: Yesterday family decided to place the patient to comfort care and they will arrange hospice care on Friday. Her one BCX bottle came back positive for GPC but family has stopped her all antibiotics. She is currently on MSO4 and Haldol and she is much comfortable. More awake and alert with some appetite. 09/30: Yesterday she found to have blood CX positive for strept. Dr. Wayne discussed the case with family and family decided to restart her Rocephin and treat her infection.. She is currently on Rocephin. She had Echo done today without any evidence of Endocarditis/no vegetation noted.I discussed the case with the family today and decided to d/c her comfort care status and start making arrangement at dementia center at [place]. Patient Complains of: Neurological: Confusion, Weakness, No: Dizziness Cardiovascular: No: Chest Pain, Palpitations Respiratory: No: Cough, Congestion, Shortness of Breath Gastrointestinal: No Nausea, No Vomiting Genitourinary: No Dysuria, No Hematuria Musculoskeletal: No: Pain, Sprain, Strain, Impaired Mobility Physical Exam Vital Signs Date Time Temp Pulse Resp B/P (MAP) Pulse Ox O2 Delivery O2 Flow Rate FiO2 09/30/17 08:15 97.8 101 12 95 Room Air 09/29/17 20:28 173/66 (101) Intake and Output 10/01/17 07:00 Intake Total 0 ml Balance 0 ml Intake Oral 0 ml General Appearance: Alert, Awake, No Acute Distress, Afebrile Neuro: No Gross deficits Eyes: PERRLA Cardiovascular: Normal Rhythm & Peripheral Pulses Respiratory: No Respiratory Distress GI: Soft and Non-Tender Extremities: Soft and Non Tender Psych: Appropriate Mood & Affect Result Diagram: 09/30/1751909/30/17519 Assessment and Plan Problems: (1) Bacteremia Status: Acute Assessment & Plan: 09/30: Her Blood CX came back positive for Strept. and her Echo is negative for valvular vegetation I will continue Rocephin 2gm IVPB bid I will repeat blood CX (2) Altered mental status Status: Acute Assessment & Plan: She was admitted after outpatient lab testing indicated a rising WBC. To this point she has had no localizing symptoms of infection and the family also notes that she was asymptomatic before coming into the hospital. She was placed on empiric treatment with ceftriaxone, vancomycin, and acyclovir, which were stopped. Her cultures have grown streptococcus intermedius. The results of her CSF showed an elevated protein, but this appears to be a traumatic tap with elevated RBC's. At this time, the family would like to get echocardiogram to assess for endocarditis. We will start her on Rocephin at this time, per family request until results are back of the echo. 09/30: Her Echo was negative for Endocarditis/valvular vegetation but she is Bacteremic I will continue Rocephin for now Repeat BC/S (3) Dementia Status: Chronic Assessment & Plan: She has progressive dementia, which has been worsening over the last few months. 09/30: I will restart her Aricept for her dementia (4) Elevated WBC count Status: Acute Assessment & Plan: As above. (5) Type II diabetes mellitus Status: Chronic Assessment & Plan: She is on sliding scale level #2. (6) Hypothyroidism Status: Chronic Assessment & Plan: She is on chronic treatment with Synthroid. (7) Hypertension, benign Status: Chronic Assessment & Plan: She is on chronic treatment with quinapril. 09/30: Her Quinipril was stopped due to comfort care and her BP has been high. I will resume her Quinipril 20mg po bid Condition stable Time Spent on Plan of Care: < 30 min Copies to: DORIS ADAMSON APRN ACQUISITION SPECIALIST-C Exam Sepsis Risk: No Definite Risk Problem Qualifiers (1) Altered mental status: Altered mental status type: delirium Qualified Codes: R41.0 - Disorientation , unspecified CORY ANDERSON MD Sep 30, 2017 11:34
[2017-09-30] MEDS: PANTOPRAZOLE SOD 40 MG TABEC PO SCH (11:44)
[2017-09-30] MEDS: cefTRIAXone 2 GM VIAL IVP SCH (11:44)
--- NOTE | 2017-09-30 12:15 | Medical Nutrition Therapy ---
Nutrition Anthropometrics Height (Inches): 59.00 Height (Calculated Centimeters: 149.855959 Weight (Pounds): 117 Weight (Calculated Kilograms): 53.070 BMI Calculated: 23.63 Mathew Nutrition Score: Probably Inadequate Mathew Nutrition Risk Score: 14 Dietary Referral Nutrition Risk Factors: Nutrition Risk Comment: Nutritional Diagnosis Nutritional Risk Acuity 2: Pr Appetite > 3d Past Medical History: dementia, depression, T2DM, HTN, hypothyroid Nutritional Acuity: 2-Moderate Nutrition Diagnosis: Inadequate Food Intake Nutrition Etiology: Psychological Issues, Disinterested in Nutr. Ed Nutrition Problem/Etiology/Sym: due to altered mental status causing poor PO intake for the past 2-3 days. Energy Requirement: 1267 (kcal/day (24 kcal/kg)- [place] [facility] Jeor RMR 1057 AF 1.2 IF 1.0) Protein Requirement: 42 (g/day (0.8 g/kg)) Fluid Requirement: 1325 (mL/day (25 mL/kg)) Diet Type: Diabetic Nutrition Intervention: Cont diet as ordered, Encourage intake Food Likes: Likes cucumbers Optional Order Time?: No Diet Comment To RSA: PROVIDE FOOD AND FLUIDS APPROPRIATE FOR COMFORT CARE Nutrition Monitoring & Eval RD Patient Assessment Time: [address] Assessment Type: RD Screen Patient Nutrition Acuity: 2-Moderate Follow Up Date: Oct 05, 2017 Nutritional Comment: 09/26 Pt admitted for altered mental status. Per physician note, pt has had poor intake for the past 2-3 days. Pt currently on a diabetic diet order with no intakes recorded. Pt inappropriate for interview at this time due to pt experiencing confusion. BUN 24, alb 2.8, NA 134. 4/24 Pt and family have decided to d/c to comfort care. Pt intakes have been poor ranging from bites to 50% of small meals consumed. Nutrition services staff to provide food and fluids as appropriate for comfort care. CHEPE DALLAS Sep 30, 2017 12:04
[2017-09-30] MEDS: LEVOTHYROXINE SOD 0.075 MG TAB PO SCH (12:53)
[2017-09-30 13:53] VITALS: BP 196/110
[2017-09-30 18:55] VITALS: BP 240/108
[2017-09-30 19:03] VITALS: BP 192/88
[2017-09-30] MEDS: QUINAPRIL HCL 20 MG TAB PO SCH (21:54)
[2017-10-01 00:06] VITALS: BP 186/80
[2017-10-01 04:29] VITALS: BP 160/90
[2017-10-01 05:52] LABS: PLATELET COUNT, AUTOMATED 231 K/uL (150-450)
[2017-10-01] MEDS: LEVOTHYROXINE SOD 0.075 MG TAB PO SCH (06:21)
--- NOTE | 2017-10-01 09:16 | RADIOLOGY IMAGING REPORT ---
FACILITY: [facility] PATIENT NAME: DARSHAN BOND : [id number] MR: [id number] V: [id number] EXAM DATE: ORDERING PHYSICIAN: CURTIS EVANS TECHNOLOGIST: Radha Rivera EXAMINATION:TWO-DIMENSIONAL ECHOCARDIOGRAPH REASON:STREP, R/O ENDOCARDITIS 2D Measurements (normal values in centimeters) LV endLV endRV endVent.LV PostAorticLeftPercent DiastolicSystolicDiastolicSeptumWallRootAtriumShortening (3.5-5.7)(0.9-2.6)(0.6-1.1)(0.6-1.1)(2.0-3.7)(1.9-4.0)(25-35%) [id number]% STROKE VOLUME: 42ml ESTIMATED EJECTION FRACTION: 41% PARASTERNAL LONG AXIS: Left ventricular systolic function appears to be mildly decreased. Hypokinesis along the septal wall with some akinesis at the apex of the left ventricle. The right ventricle appears to contract normally. The TAPSE measured 2.2. Questionable mild left ventricular thickening somewhat asymmetric more along the posterior wall but no evidence for any outflow tract obstruction. There is aortic insufficiency present as well as mitral insufficiency & tricuspid insufficiency present. PARASTERNAL SHORT AXIS: Left ventricular systolic function appears to be somewhat decreased & there appears to be hypokinesis if not nuris akinesis along the apical portion of the interventricular septum as well as the apex of the left ventricle. Some pulmonic insufficiency is also noted. APICAL FOUR AND TWO CHAMBER: Aortic insufficiency is noted. Decreased left ventricular ejection fraction. There is also a trace of tricuspid insufficiency. The tricuspid regurgitation Vmax measured at 2.69m/sec. Patient appears to be in atrial flutter. No thrombi are noted & the left atrial appendage is not seen. The aortic valve area is measured at 1.1cm2 with a mean pressure gradient across the valve of 7mm Hg but the dimensionless index was .7. Left atrial volume is severely increased at 42.3ml/m2. Right atrial volume is measured within normal ranges at 16ml/m2. There is hypokinesis along the apical portion of the interventricular septum as well as some akinesis along the apex of the left ventricle. Definity contrast was used. No thrombi were noted. No obvious vegetations are noted in any of the valves. SUBCOSTAL VIEW: No pericardial effusion was noted. No atrioseptal or ventriculoseptal defects were appreciated. Aortic insufficiency pressure half time is measured between 352-572msec. IVC is normal in size. STRAIN measurements show akinesis at the apex of the left ventricle. OVERALL IMPRESSION: 1. Decreased left ventricular ejection fraction of 41% with akinesis at the apex of the left ventricle & hypokinesis possibly a small portion of akinesis at the apical portion of the interventricular septum. 2. Patient appears to be in atrial flutter. No thrombi are noted in any of the chambers. The left atrial appendage is not seen. Definity contrast was also used. 3. Somewhat asymmetric left ventricular thickening more along the posterior wall but no evidence for any outflow tract obstruction. Mild thickening is noted. 4. Left atrium is severely enlarged. The other chamber sizes are normal. 5. Somewhat sclerotic but not stenotic aortic valve. The aortic valve area was measured in the low range but the mean pressure gradient across the valve was only 7mm Hg & the dimensionless index was .7 indicating borderline to mild aortic stenosis. No vegetations were noted in this valve. 6. Mitral valve appears to open normally. There is a mild amount of mitral insufficiency. No obvious vegetations were noted. 7. A trace of tricuspid insufficiency with no obvious vegetations. The estimated right ventricular systolic pressure was within normal ranges at 32mm Hg. 8. The pulmonic valve was not seen well, but no obvious vegetations were noted & there is a mild amount of pulmonic insufficiency. 9. If still suspicious of possible vegetations I would recommend a transesophageal echocardiograph. Dictated by: Ashleigh Wilkinson M.D. on 09/30/2017 at 14:05 Transcribed by: CARI on 10/01/2017 at 7:32 Approved by: Ashleigh Wilkinson M.D. on 10/01/2017 at 9:15 [facility] [employer]
[2017-10-01 09:28] VITALS: BP 160/82
[2017-10-01] MEDS: PANTOPRAZOLE SOD 40 MG TABEC PO SCH (09:32)
[2017-10-01] MEDS: DONEPEZIL HCL 5 MG TAB PO SCH (09:32)
[2017-10-01] MEDS: QUINAPRIL HCL 20 MG TAB PO SCH ×2 (09:32→21:36)
[2017-10-01] MEDS ORDERED: traMADol 50 MG TAB TH 2 TAB/BOTTLE PO SCH (10:10)
[2017-10-01] MEDS: amLODIPine BESYL(*) 2.5 MG TAB PO SCH (11:03)
[2017-10-01] MEDS: traMADol 50 MG TAB PO SCH ×3 (11:03→21:36)
[2017-10-01] MEDS: ACETAMINOPHEN 500 MG TAB PO SCH ×3 (11:03→21:36)
[2017-10-01 11:29] VITALS: BP 182/110
--- NOTE | 2017-10-01 12:33 | Hospitalist Progress Note ---
Subjective Progress Notes Subjective Mrs. Giang is an 81y.o female with PMHx significant for type 2 DM, dementia, DEWAYNE, Neuropathy, Depression, Hypothyroidism, HTN. She currently lives at [facility]. Her family has noted steady decline in her cognitive status over the past several months. She became much more confused over the past few days. Her functional status declined as well. She has not been eating or drinking much for past 2-3 days. Apparently, she had not complained of any specific complaints. No definite fevers were noted. Urine was noted to be cloudy, but no incontinence/frequency noted. No rashes other than some mild erythema in her inguinal skin folds. No cough or sputum noted. She had not c/o headache. No N/V/diarrhea was noted. She was evaluated in the ER 2 days ago and felt to possibly have sinusitis and started on oral Levaquin. She was re-evaluated in the clinic and again in the ER today. She was still confused. Her WBC count was significantly elevated. The remainder of her evaluation was rather unremarkable. She was recommended for admission. 09/27: She underwent multiple tests including LP but no conclusive evidence of any obvious infectious source. Her CSF is pending for Herpes. She is currently on Acyclovir and Rocephin.wit no significant improvement in her mental status. Today family decided to place her in comfort care and remove her all the medications except MSO4 and Haldol for comfort care. Family will arrange for Hospice on Friday. Her K level is low 2.9 and her WBC were 23.3K 09/28: Yesterday family decided to place the patient to comfort care and they will arrange hospice care on Friday. Her one BCX bottle came back positive for GPC but family has stopped her all antibiotics. She is currently on MSO4 and Haldol and she is much comfortable. More awake and alert with some appetite. 09/30: Yesterday she found to have blood CX positive for strept. Dr. Wayne discussed the case with family and family decided to restart her Rocephin and treat her infection.. She is currently on Rocephin. She had Echo done today without any evidence of Endocarditis/no vegetation noted.I discussed the case with the family today and decided to d/c her comfort care status and start making arrangement at dementia center at [place]. 10/01: Today patient is doing fine without any obvious complaint. She is afebrile and hemodynamically stable. She is on Rocephin for positive blood CX, ID and sensitivity is pending. She is awaiting placement at [place]. Patient Complains of: Neurological: Confusion, Weakness, No: Dizziness Cardiovascular: No: Chest Pain, Palpitations Respiratory: No: Cough, Congestion, Shortness of Breath Gastrointestinal: No Nausea, No Vomiting Genitourinary: No Dysuria, No Hematuria Musculoskeletal: Impaired Mobility, No: Pain, Sprain, Strain Physical Exam Vital Signs Date Time Temp Pulse Resp B/P (MAP) Pulse Ox O2 Delivery O2 Flow Rate FiO2 10/01/17 11:29 98.2 91 28 182/110 (134) 93 Room Air Intake and Output 10/02/17 07:00 # Voids 0 General Appearance: Alert, Awake, No Acute Distress, Afebrile Neuro: No Gross deficits Eyes: PERRLA Cardiovascular: Normal Rhythm & Peripheral Pulses Respiratory: No Respiratory Distress GI: Soft and Non-Tender Extremities: Soft and Non Tender Psych: Appropriate Mood & Affect Result Diagram: 10/01/17 0527 09/30/17 0520 Assessment and Plan Problems: (1) Bacteremia Status: Acute Assessment & Plan: 09/30: Her Blood CX came back positive for Strept. and her Echo is negative for valvular vegetation I will continue Rocephin 2gm IVPB bid I will repeat blood CX 10/01: I will continue the current management I will resume her Tremadol and stop MSO4 I will get BMP and CBC in am (2) Altered mental status Status: Acute Assessment & Plan: She was admitted after outpatient lab testing indicated a rising WBC. To this point she has had no localizing symptoms of infection and the family also notes that she was asymptomatic before coming into the hospital. She was placed on empiric treatment with ceftriaxone, vancomycin, and acyclovir, which were stopped. Her cultures have grown streptococcus intermedius. The results of her CSF showed an elevated protein, but this appears to be a traumatic tap with elevated RBC's. At this time, the family would like to get echocardiogram to assess for endocarditis. We will start her on Rocephin at this time, per family request until results are back of the echo. 09/30: Her Echo was negative for Endocarditis/valvular vegetation but she is Bacteremic I will continue Rocephin for now Repeat BC/S 10/01: She is more awake and alert without Haldol. Overall gradual improvement (3) Hypertension, benign Status: Chronic Assessment & Plan: She is on chronic treatment with quinapril. 09/30: Her Quinipril was stopped due to comfort care and her BP has been high. I will resume her Quinipril 20mg po bid 10/01: Her BP is still high and I will add Norvasc 2.5mg po qd today (4) Dementia Status: Chronic Assessment & Plan: She has progressive dementia, which has been worsening over the last few months. 09/30: I will restart her Aricept for her dementia (5) Elevated WBC count Status: Acute Assessment & Plan: As above. (6) Type II diabetes mellitus Status: Chronic Assessment & Plan: She is on sliding scale level #2. (7) Hypothyroidism Status: Chronic Assessment & Plan: She is on chronic treatment with Synthroid. Condition stable Copies to: DORIS ADAMSON APRN [employer]-C Exam Sepsis Risk: No Definite Risk Problem Qualifiers (1) Altered mental status: Altered mental status type: delirium Qualified Codes: R41.0 - Disorientation , unspecified CORY ANDERSON MD Oct 01, 2017 12:33
[2017-10-01] MEDS: cefTRIAXone 2 GM VIAL IVP SCH (12:36)
[2017-10-01 21:31] VITALS: BP 172/80
[2017-10-02 04:22] VITALS: BP 168/96
[2017-10-02 06:00] LABS: PLATELET COUNT, AUTOMATED 216 K/uL (150-450)
[2017-10-02] MEDS: LEVOTHYROXINE SOD 0.075 MG TAB PO SCH (06:24)
[2017-10-02 07:33] VITALS: BP 158/84
[2017-10-02] MEDS: QUINAPRIL HCL 20 MG TAB PO SCH ×2 (08:12→21:37)
[2017-10-02] MEDS: ACETAMINOPHEN 500 MG TAB PO SCH ×3 (08:12→21:37)
[2017-10-02] MEDS: traMADol 50 MG TAB PO SCH ×3 (08:12→21:37)
[2017-10-02] MEDS: amLODIPine BESYL(*) 2.5 MG TAB PO SCH (08:12)
[2017-10-02] MEDS: PANTOPRAZOLE SOD 40 MG TABEC PO SCH (08:12)
[2017-10-02] MEDS: DONEPEZIL HCL 5 MG TAB PO SCH (08:13)
[2017-10-02 10:56] VITALS: BP 184/78
[2017-10-02] MEDS: cefTRIAXone 2 GM VIAL IVP SCH (11:57)
--- NOTE | 2017-10-02 12:16 | Hospitalist Progress Note ---
Subjective Progress Notes Subjective This patient was admitted for an elevated WBC. She had no acute changes overnight. Patient Complains of: Cardiovascular: No: Chest Pain Respiratory: No: Shortness of Breath Physical Exam Vital Signs Date Time Temp Pulse Resp B/P (MAP) Pulse Ox O2 Delivery O2 Flow Rate FiO2 10/02/17 10:56 98.0 79 16 184/78 (113) 92 Room Air Intake and Output 10/03/17 07:00 # Voids 2 Neuro: No Gross deficits Cardiovascular: Regular Rate and Rhythm Respiratory: Clear to Auscultation Extremities: No Edema Integumentary: No Cyanosis Result Diagram: 10/02/17 0531 10/02/17 0531 Item Value Date Time Blood Culture - Final Resulted 09/25/172154 Blood Blood Culture - Final Resulted 09/25/171834 Blood Assessment and Plan Problems: (1) Bacteremia Status: Acute Assessment & Plan: She initially presented with an elevated WBC, but no definitive source of infection. Her two initial blood cultures did return positive of Streptococcus intermedius. She was initially on empiric treatment with ceftriaxone, vancomycin, levofloxacin, and acyclovir. She is now on monotherapy with ceftriaxone. Her subsequent cultures have been negative and her WBC is improving. The current plan is that she will receive a 10 day course of the ceftriaxone and then discharge to a dementia facility. (2) Altered mental status Status: Acute Assessment & Plan: She did require intermittent dosing with Haldol, but has not required any in the last week. (3) Hypertension, benign Status: Chronic Assessment & Plan: She is on chronic treatment with quinapril and amlodipine was added during this admission. (4) Dementia Status: Chronic Assessment & Plan: She has been restarted on Aricept. (5) Type II diabetes mellitus Status: Chronic Assessment & Plan: She does have a reported history of diabetes, but was not on chronic treatment. (6) Hypothyroidism Status: Chronic Assessment & Plan: She is on chronic treatment with Synthroid. Exam Sepsis Risk: No Definite Risk Problem Qualifiers (1) Altered mental status: Altered mental status type: delirium Qualified Codes: R41.0 - Disorientation , unspecified SELINA RAPHAEL DO Oct 02, 2017 12:16
[2017-10-02 15:48] VITALS: BP 150/78
[2017-10-02 19:23] VITALS: BP 152/86
[2017-10-03 00:16] VITALS: BP 178/88
[2017-10-03] MEDS: LEVOTHYROXINE SOD 0.075 MG TAB PO SCH (06:43)
[2017-10-03 07:16] VITALS: BP 184/90
[2017-10-03] MEDS: PANTOPRAZOLE SOD 40 MG TABEC PO SCH (08:25)
[2017-10-03] MEDS: QUINAPRIL HCL 20 MG TAB PO SCH ×2 (08:25→21:06)
[2017-10-03] MEDS: DONEPEZIL HCL 5 MG TAB PO SCH (08:25)
[2017-10-03] MEDS: ACETAMINOPHEN 500 MG TAB PO SCH ×3 (08:25→21:06)
[2017-10-03] MEDS: traMADol 50 MG TAB PO SCH ×3 (08:25→21:07)
[2017-10-03] MEDS: amLODIPine BESYL(*) 2.5 MG TAB PO SCH (08:25)
[2017-10-03] MEDS: cefTRIAXone 2 GM VIAL IVP SCH (11:45)
[2017-10-03 11:53] VITALS: BP 162/76
[2017-10-03] MEDS ORDERED: amLODIPine BESYL(*) 2.5 MG TAB PO ONE (13:10)
--- NOTE | 2017-10-03 13:10 | Hospitalist Progress Note ---
Subjective Progress Notes Subjective She denies mouth pain, SOB, CP, nausea. No concerns from staff. Physical Exam Vital Signs Date Time Temp Pulse Resp B/P (MAP) Pulse Ox O2 Delivery O2 Flow Rate FiO2 10/03/17 11:53 98.1 76 16 162/76 (104) 93 Room Air Intake and Output 10/04/17 07:00 # Voids 1 General Appearance: Alert, Awake, No Acute Distress Neuro: Other (Only orientated to self, but answers questions appropriately pertaining to how she is doing. ) ENT: Moist Mucous Membranes, Other (Multiple crowns and dental fixtures, but no obvious swelling, erythema of the gingiva or buccal mucosa) Cardiovascular: Regular Rate and Rhythm GI: Soft and Non-Tender Result Diagram: 10/02/1753010/02/17530 Assessment and Plan Problems: (1) Bacteremia Status: Acute Assessment & Plan: She initially presented with an elevated WBC, but no definitive source of infection. Her two initial blood cultures did return positive of Streptococcus intermedius. She was initially on empiric treatment with ceftriaxone, vancomycin, levofloxacin, and acyclovir. She is now on monotherapy with ceftriaxone. Her subsequent cultures from 09/30 have been negative and her WBC is improving. The current plan is that she will receive a 10 day course of the ceftriaxone and then discharge to a dementia facility. (2) Altered mental status Status: Acute Assessment & Plan: She did require intermittent dosing with Haldol, but has not required any in the last week. (3) Hypertension, benign Status: Chronic Assessment & Plan: She is on chronic treatment with quinapril and amlodipine was added and titrate up during this admission. (4) Dementia Status: Chronic Assessment & Plan: She has been restarted on Aricept. (5) Type II diabetes mellitus Status: Chronic Assessment & Plan: She does have a reported history of diabetes, but was not on chronic treatment. (6) Hypothyroidism Status: Chronic Assessment & Plan: She is on chronic treatment with Synthroid. Exam Sepsis Risk: No Definite Risk Problem Qualifiers (1) Altered mental status: Altered mental status type: delirium Qualified Codes: R41.0 - Disorientation , unspecified LAINE MOTLEY MD Oct 03, 2017 13:10
[2017-10-03 14:55] VITALS: BP 170/80
[2017-10-03 19:48] VITALS: BP 159/80
[2017-10-03 23:33] VITALS: BP 160/76
[2017-10-04 04:17] VITALS: BP 183/83
[2017-10-04] MEDS: cefTRIAXone 2 GM VIAL IVP SCH (05:21)
[2017-10-04] MEDS: LEVOTHYROXINE SOD 0.075 MG TAB PO SCH (05:21)
[2017-10-04 07:27] VITALS: BP 139/83
[2017-10-04] MEDS: DONEPEZIL HCL 5 MG TAB PO SCH (09:20)
[2017-10-04] MEDS: PANTOPRAZOLE SOD 40 MG TABEC PO SCH (09:20)
[2017-10-04] MEDS: ACETAMINOPHEN 500 MG TAB PO SCH ×4 (09:20→20:16)
[2017-10-04] MEDS: traMADol 50 MG TAB PO SCH ×4 (09:20→20:17)
[2017-10-04] MEDS: amLODIPine BESYL(*) 5 MG TAB PO SCH (09:20)
[2017-10-04] MEDS: QUINAPRIL HCL 20 MG TAB PO SCH ×2 (09:25→20:16)
--- NOTE | 2017-10-04 10:16 | Hospitalist Progress Note ---
Subjective Progress Notes Subjective She is awake and alert. She does try to answer questions. Physical Exam Vital Signs Date Time Temp Pulse Resp B/P (MAP) Pulse Ox O2 Delivery O2 Flow Rate FiO2 10/04/17 07:28 96 Room Air 10/04/17 07:27 97.4 86 14 139/83 (101) General Appearance: Alert, Awake Neuro: Other (she does move all four extremities) Cardiovascular: Regular Rate and Rhythm Respiratory: Other (fairly clear) GI: Soft and Non-Tender Extremities: Warm, Perfused Result Diagram: 10/02/1753010/02/17530 Assessment and Plan Problems: (1) Bacteremia Status: Acute Assessment & Plan: She initially presented with an elevated WBC, but no definitive source of infection. Her two initial blood cultures did return positive of Streptococcus intermedius. She was initially on empiric treatment with ceftriaxone, vancomycin, levofloxacin, and acyclovir. She is now on monotherapy with ceftriaxone. Her subsequent cultures from 09/30 have been negative and her WBC is improving. The current plan is that she will receive a 10 day course of the ceftriaxone and then discharge to a dementia facility. (2) Altered mental status Status: Acute Assessment & Plan: She did require intermittent dosing with Haldol, but has not required any in the last week. (3) Hypertension, benign Status: Chronic Assessment & Plan: She is on chronic treatment with quinapril and amlodipine was added during this admission. (4) Dementia Status: Chronic Assessment & Plan: She has been restarted on Aricept. (5) Type II diabetes mellitus Status: Chronic Assessment & Plan: She does have a reported history of diabetes, but was not on chronic treatment. Glucoses on diet alone have been in 120-170 range past couple of days. (6) Hypothyroidism Status: Chronic Assessment & Plan: She is on chronic treatment with Synthroid. Exam Sepsis Risk: No Definite Risk Problem Qualifiers (1) Altered mental status: Altered mental status type: delirium Qualified Codes: R41.0 - Disorientation , unspecified YOLANDA LORENZ MD Oct 04, 2017 10:16
[2017-10-04 19:22] VITALS: BP 176/85
[2017-10-05] MEDS: traMADol 50 MG TAB PO PRN (01:50)
[2017-10-05] MEDS ORDERED: NS(*) 0.9% 250 ML BAG 250 ML ONE (05:24)
[2017-10-05] MEDS: LEVOTHYROXINE SOD 0.075 MG TAB PO SCH (05:38)
[2017-10-05] MEDS: cefTRIAXone 2 GM VIAL IVP SCH (05:38)
[2017-10-05] MEDS: traMADol 50 MG TAB PO SCH ×3 (08:23→21:54)
[2017-10-05] MEDS: PANTOPRAZOLE SOD 40 MG TABEC PO SCH (08:23)
[2017-10-05] MEDS: QUINAPRIL HCL 20 MG TAB PO SCH ×2 (08:24→20:16)
[2017-10-05] MEDS: ACETAMINOPHEN 500 MG TAB PO SCH ×3 (08:24→21:53)
[2017-10-05] MEDS: amLODIPine BESYL(*) 5 MG TAB PO SCH (08:24)
[2017-10-05] MEDS: DONEPEZIL HCL 5 MG TAB PO SCH (08:24)
[2017-10-05 10:18] VITALS: BP 156/96
--- NOTE | 2017-10-05 10:51 | Hospitalist Progress Note ---
Subjective Progress Notes Subjective This patient was admitted for an elevated WBC. She had no acute events overnight. Patient Complains of: Neurological: Confusion Cardiovascular: No: Chest Pain Respiratory: No: Shortness of Breath Physical Exam Vital Signs Date Time Temp Pulse Resp B/P (MAP) Pulse Ox O2 Delivery O2 Flow Rate FiO2 10/05/17 10:20 94 Room Air 10/05/17 10:18 98.5 94 18 156/96 (116) Intake and Output 10/06/17 07:00 Intake Total 120 ml Balance 120 ml Intake Oral 120 ml Cardiovascular: Regular Rate and Rhythm Respiratory: Clear to Auscultation GI: Soft and Non-Tender Extremities: No Edema Integumentary: No Cyanosis Result Diagram: 10/02/17 0531 10/02/17 0531 Item Value Date Time Blood Culture - Final Resulted 09/25/172154 Blood Blood Culture - Final Resulted 09/25/171834 Blood Assessment and Plan Problems: (1) Bacteremia Status: Acute Assessment & Plan: She initially presented with an elevated WBC, but no definitive source of infection. Her two initial blood cultures did return positive of Streptococcus intermedius. She was initially on empiric treatment with ceftriaxone, vancomycin, levofloxacin, and acyclovir. She is now on monotherapy with ceftriaxone. Her subsequent cultures from 09/30 have been negative and her WBC is improving. The current plan is that she will receive a 10 day course (from the date of her negative cultures) of the ceftriaxone and then discharge to a dementia facility. (2) Altered mental status Status: Acute Assessment & Plan: She did require intermittent dosing with Haldol, but has not required any in the last week. (3) Hypertension, benign Status: Chronic Assessment & Plan: She is on chronic treatment with quinapril and amlodipine was added during this admission. (4) Dementia Status: Chronic Assessment & Plan: She has been restarted on Aricept. (5) Type II diabetes mellitus Status: Chronic Assessment & Plan: She does have a reported history of diabetes, but was not on chronic treatment. Glucoses on diet alone have been in 120-170 range past couple of days. (6) Hypothyroidism Status: Chronic Assessment & Plan: She is on chronic treatment with Synthroid. Exam Sepsis Risk: No Definite Risk Problem Qualifiers (1) Altered mental status: Altered mental status type: delirium Qualified Codes: R41.0 - Disorientation , unspecified SELINA RAPHAEL DO Oct 05, 2017 10:50
--- NOTE | 2017-10-05 11:28 | Medical Nutrition Therapy ---
Nutrition Anthropometrics Height (Inches): 59.00 Height (Calculated Centimeters: [phone] Weight (Pounds): 117 Weight (Calculated Kilograms): 53.070 BMI Calculated: 23.63 Mathew Nutrition Score: Adequate Mathew Nutrition Risk Score: 19 Dietary Referral Nutrition Risk Factors: Nutrition Risk Comment: Physical Findings Physical Appearance: BMI 23 Skin Appearance Skin Appearance: Edema Edema Location Modifier: Edema Location: Type of Edema: Degree of Edema: Gastrointestinal Symptoms GI Symtoms: Tube Present: Bowel Sounds: Recent Bowel Pattern: Stool Characteristics: Nutritional Diagnosis Nutritional Risk Acuity 2: Pr Appetite > 3d Past Medical History: dementia, depression, T2DM, HTN, hypothyroid Nutritional Acuity: 2-Moderate Nutrition Diagnosis: Inadequate Food Intake Nutrition Etiology: Psychological Issues, Disinterested in Nutr. Ed Nutrition Problem/Etiology/Sym: due to altered mental status causing poor PO intake for the past 2-3 days. Energy Requirement: 1267 (kcal/day (24 kcal/kg)- [place] St Jeor RMR 1057 AF 1.2 IF 1.0) Protein Requirement: 42 (g/day (0.8 g/kg)) Fluid Requirement: 1325 (mL/day (25 mL/kg)) Diet Type: Diabetic Nutrition Intervention: Cont diet as ordered, Encourage intake Food Likes: Likes cucumbers Optional Order Time?: No Additional Diet Restrictions: ALLERGIC TO BEEF AND PRODUCTS WITH BEEF Diet Comment To [facility]: PROVIDE FOOD AND FLUIDS APPROPRIATE FOR COMFORT CARE Nutrition Monitoring & Eval RD Patient Assessment Time: [address] Assessment Type: RD Assessment Patient Nutrition Acuity: 2-Moderate Follow Up Date: October 10, 2017 Nutritional Comment: 09/26 Pt admitted for altered mental status. Per physician note, pt has had poor intake for the past 2-3 days. Pt currently on a diabetic diet order with no intakes recorded. Pt inappropriate for interview at this time due to pt experiencing confusion. BUN 24, alb 2.8, NA 134. 09/30 Pt and family have decided to d/c to comfort care. Pt intakes have been poor ranging from bites to 50% of small meals consumed. Nutrition services staff to provide food and fluids as appropriate for comfort care. 10/05 Pt family decided to d/c comfort care status (on 09/30) and prepare for transfer to dementia center in [place]. Currently on ADA diet and consuming an average of 32% of meals. BG ranges rom 176-121. Will cont to monitor and encourage intake. -PATIENCE RUIZ Oct 05, 2017 11:28
[2017-10-05 20:12] VITALS: BP 139/96
[2017-10-06] MEDS: cefTRIAXone 2 GM VIAL IVP SCH (05:22)
[2017-10-06 05:47] LABS: PLATELET COUNT, AUTOMATED 290 K/uL (150-450)
[2017-10-06] MEDS: LEVOTHYROXINE SOD 0.075 MG TAB PO SCH (07:20)
--- NOTE | 2017-10-06 08:52 | Hospitalist Progress Note ---
Subjective Progress Notes Subjective She had no acute events overnight per staff. Physical Exam Vital Signs Date Time Temp Pulse Resp B/P (MAP) Pulse Ox O2 Delivery O2 Flow Rate FiO2 10/06/17 03:32 97.6 102 20 95 Room Air 10/05/17 20:12 139/96 (110) General Appearance: Awake, No Acute Distress, Afebrile Cardiovascular: Regular Rate and Rhythm Respiratory: No Respiratory Distress, Clear to Auscultation GI: Soft and Non-Tender Psych: Appropriate Mood & Affect Result Diagram: 10/06/17 0520 10/06/17 0556 Assessment and Plan Problems: (1) Bacteremia Status: Acute Assessment & Plan: She initially presented with an elevated WBC, but no definitive source of infection. Her two initial blood cultures did return positive of Streptococcus intermedius. She was initially on empiric treatment with ceftriaxone, vancomycin, levofloxacin, and acyclovir. She is now on monotherapy with ceftriaxone. Her subsequent cultures from 09/30 have been negative and her WBC is improving. The current plan is that she will receive a 10 day course (from the date of her negative cultures) of the ceftriaxone and then discharge to a dementia facility. (2) Altered mental status Status: Acute Assessment & Plan: She did require intermittent dosing with Haldol, but has not required any in the last week. (3) Hypertension, benign Status: Chronic Assessment & Plan: She is on chronic treatment with quinapril and amlodipine was added during this admission. (4) Dementia Status: Chronic Assessment & Plan: She has been restarted on Aricept. (5) Type II diabetes mellitus Status: Chronic Assessment & Plan: She does have a reported history of diabetes, but was not on chronic treatment. Glucoses on diet alone have been in 120-170 range past couple of days. (6) Hypothyroidism Status: Chronic Assessment & Plan: She is on chronic treatment with Synthroid. Exam Sepsis Risk: No Definite Risk Problem Qualifiers (1) Altered mental status: Altered mental status type: delirium Qualified Codes: R41.0 - Disorientation , unspecified CURTIS EVANS STEM CRUSHER Oct 06, 2017 08:52
[2017-10-06 09:53] VITALS: BP 160/92
[2017-10-06] MEDS: amLODIPine BESYL(*) 5 MG TAB PO SCH (09:55)
[2017-10-06] MEDS: traMADol 50 MG TAB PO SCH ×3 (09:56→20:18)
[2017-10-06] MEDS: DONEPEZIL HCL 5 MG TAB PO SCH (09:56)
[2017-10-06] MEDS: PANTOPRAZOLE SOD 40 MG TABEC PO SCH (09:56)
[2017-10-06] MEDS: ACETAMINOPHEN 500 MG TAB PO SCH ×3 (09:56→20:18)
[2017-10-06] MEDS: QUINAPRIL HCL 20 MG TAB PO SCH ×2 (09:57→20:18)
[2017-10-06 11:30] VITALS: BP 174/73
[2017-10-06 15:00] VITALS: BP 159/82
[2017-10-06 19:25] VITALS: BP 114/76
[2017-10-07 03:01] VITALS: BP 168/77
[2017-10-07] MEDS: cefTRIAXone 2 GM VIAL IVP SCH (05:26)
[2017-10-07] MEDS: LEVOTHYROXINE SOD 0.075 MG TAB PO SCH (05:26)
[2017-10-07 07:15] VITALS: BP 176/71
[2017-10-07] MEDS: QUINAPRIL HCL 20 MG TAB PO SCH ×2 (08:18→21:22)
[2017-10-07] MEDS: amLODIPine BESYL(*) 5 MG TAB PO SCH (08:18)
[2017-10-07] MEDS: traMADol 50 MG TAB PO SCH ×3 (08:18→21:22)
[2017-10-07] MEDS: ACETAMINOPHEN 500 MG TAB PO SCH ×3 (08:18→21:22)
[2017-10-07] MEDS: PANTOPRAZOLE SOD 40 MG TABEC PO SCH (08:18)
[2017-10-07] MEDS: DONEPEZIL HCL 5 MG TAB PO SCH (08:18)
--- NOTE | 2017-10-07 10:29 | Hospitalist Progress Note ---
Subjective Progress Notes Subjective She had no acute events overnight. No concerns from staff. Patient Complains of: Cardiovascular: No: Chest Pain Respiratory: No: Shortness of Breath Physical Exam Vital Signs Date Time Temp Pulse Resp B/P (MAP) Pulse Ox O2 Delivery O2 Flow Rate FiO2 10/07/17 07:15 97.6 75 16 176/71 (106) 97 Room Air General Appearance: Alert, Awake, No Acute Distress, Afebrile Neuro: No Gross deficits Cardiovascular: Regular Rate and Rhythm Respiratory: No Respiratory Distress, Clear to Auscultation Psych: Appropriate Mood & Affect Result Diagram: 10/06/17 0520 10/06/17 0556 Assessment and Plan Problems: (1) Bacteremia Status: Acute Assessment & Plan: She initially presented with an elevated WBC, but no definitive source of infection. Her two initial blood cultures did return positive of Streptococcus intermedius. She was initially on empiric treatment with ceftriaxone, vancomycin, levofloxacin, and acyclovir. She is now on monotherapy with ceftriaxone. Her subsequent cultures from 09/30 have been negative and her WBC is improving. The current plan is that she will receive a 10 day course (from the date of her negative cultures) of the ceftriaxone and then discharge to a dementia facility. (2) Altered mental status Status: Acute Assessment & Plan: She did require intermittent dosing with Haldol, but has not required any in the last week. (3) Hypertension, benign Status: Chronic Assessment & Plan: She is on chronic treatment with quinapril and amlodipine was added during this admission. (4) Dementia Status: Chronic Assessment & Plan: She has been restarted on Aricept. (5) Type II diabetes mellitus Status: Chronic Assessment & Plan: She does have a reported history of diabetes, but was not on chronic treatment. Glucoses on diet alone have been in 120-170 range past couple of days. (6) Hypothyroidism Status: Chronic Assessment & Plan: She is on chronic treatment with Synthroid. Exam Sepsis Risk: No Definite Risk Problem Qualifiers (1) Altered mental status: Altered mental status type: delirium Qualified Codes: R41.0 - Disorientation , unspecified CURTIS EVANS October 07, 2017 10:29
[2017-10-07 11:40] VITALS: BP 152/72
[2017-10-07 15:32] VITALS: BP 168/70
[2017-10-07 21:30] VITALS: BP 165/90
[2017-10-08] MEDS: LEVOTHYROXINE SOD 0.075 MG TAB PO SCH (05:29)
[2017-10-08] MEDS: cefTRIAXone 2 GM VIAL IVP SCH (05:29)
[2017-10-08] MEDS: traMADol 50 MG TAB PO PRN (06:42)
[2017-10-08] MEDS ORDERED: AMLO-96 PO (07:36)
--- NOTE | 2017-10-08 07:38 | Hospitalist Depart ---
Discharge Summary Reason for Hosp/Final Diag: (1) Bacteremia Status: Acute Hospital Course & Plan: She initially presented with an elevated WBC, but no definitive source of infection. Her two initial blood cultures did return positive of Streptococcus intermedius. She was initially on empiric treatment with ceftriaxone, vancomycin, levofloxacin, and acyclovir. She was switched to monotherapy with ceftriaxone. Her subsequent cultures from 09/30 have been negative and her WBC is improving. She received a 10 day course (from the date of her negative cultures) of the ceftriaxone. (2) Altered mental status Status: Acute Hospital Course & Plan: She did require intermittent dosing with Haldol, but has not required any in the last week. (3) Hypertension, benign Status: Chronic Hospital Course & Plan: She is on chronic treatment with quinapril and amlodipine was added during this admission. (4) Dementia Status: Chronic Hospital Course & Plan: She is on chronic treatment with Aricept. (5) Type II diabetes mellitus Status: Chronic Hospital Course & Plan: She does have a reported history of diabetes, but was not on chronic treatment. Glucoses on diet alone have been in 120-170 range the past week. (6) Hypothyroidism Status: Chronic Hospital Course & Plan: She is on chronic treatment with Synthroid. Departure Weight (Pounds): 117 Result Diagram: 10/06/17 0520 10/06/17 0556 Condition: Improved Discharge: Assisted Living Discharge Instructions Home Meds Active Scripts Fluticasone Prop 50 Mcg Ns (FLONASE 50 MCG NS) 16 Gm [place].susp, 1 SPRAY NS BID for 14 Days, BOT Prov:RYAN LLOYD 09/23/17 Levofloxacin 500 Mg Tab (LEVAQUIN 500 MG TAB) 500 Mg Tablet, 500 MG PO DAILY for 7 Days, #7 TAB Prov:RYAN LLOYDC 09/23/17 Albuterol Sulfate 0.083% (ALBUTEROL SULFATE 0.083%) 2.5 Mg/3 Ml Vial.neb, 2.5 MG INH Q4-6H Y for WHEEZING, #1 BOX 0 Refills Prov:DORIS ADAMSON APRN-C 08/04/17 Sertraline Hcl (SERTRALINE HCL) 100 Mg Tablet, 1 TAB PO QDAY, #30 TAB 5 Refills Prov:DORIS ADAMSON APRN-C 07/09/17 Mirtazapine (MIRTAZAPINE) 15 Mg Tablet, 1 TAB PO QHS, #30 TAB 5 Refills Prov:DORIS ADAMSON APRN [employer] UNDERWRITER-C 06/19/17 Tramadol Hcl (TRAMADOL HCL) 50 Mg Tablet, 1 TAB PO 3-4XD for PAIN, #120 TAB 5 Refills Take one tab 3 times daily scheduled and one tab as needed for pain during the night Prov:DORIS ADAMSON APRN [employer] UNDERWRITER-C 05/23/17 Simethicone (GAS-X) 125 Mg Tab.chew, 1 TAB PO TIDAC, #90 TAB.CHEW 5 Refills Prov:SNOWDORIS TECHNICAL APPLICATIONS SCIENTIST [employer] UNDERWRITER-C 05/23/17 Acetaminophen (TYLENOL EXTRA STRENGTH) 500 Mg Tablet, 1 TAB PO TID, #90 TAB 11 Refills Prov:SNOWDORIS TATEN [employer] UNDERWRITER-C 05/23/17 Levothyroxine Sodium (LEVOTHYROXINE SODIUM) 75 Mcg Tablet, 1 TAB PO QDAY, #90 TAB 4 Refills Prov:SNOWDORIS YONY [employer] UNDERWRITER-C 05/23/17 Donepezil Hcl (DONEPEZIL HCL) 10 Mg Tablet, 1 TAB PO QDAY, #90 TAB 3 Refills Prov:SNOWDORIS TATEN [employer]OM[employer]BI[employer] UNDERWRITER-C 05/23/17 Omeprazole (OMEPRAZOLE) 20 Mg Capsule.dr, 1 CAP PO QDAY, #90 TAB 3 Refills Prov:CAROLINE ADAMSONMICAH TATEN AUTOM[employer]BI[employer] UNDERWRITER-C 05/23/17 Cholecalciferol (Vitamin D3) (VITAMIN D3) 2,000 Unit Capsule, 1 CAP PO DAILY, # 90 CAPSULE 4 Refills Prov:CAROLINE ADAMSONMICAH TATEN [employer]OM[employer] UNDERWRITER-C 04/24/17 Doxycycline Hyclate (DOXYCYCLINE HYCLATE) 100 Mg Tablet, 1 TAB PO QDAY, #30 TAB 9 Refills Prov:CAROLINE ADAMSONMICAH TATEN [employer]OM[employer] UNDERWRITER-C 04/24/17 Quinapril Hcl (QUINAPRIL HCL) 20 Mg Tablet, 1 TAB PO QDAY, #30 TAB 11 Refills Prov:CAROLINE ADAMSONMICAH TATEN [employer]OM[employer] UNDERWRITER-C 04/24/17 Nystatin 100,000 Unit/Gm Top Powder (NYSTATIN 100,000 UNIT/GM TOP POWDER) 15 Gm Powder, 1 DEVON TP BID Y for rash under breasts for 14 Days, #60 GM 2 Refills Apply to rash twice daily until resolved - notify provider if not improved in 2 weeks. Prov:DORIS ADAMSON APRN-C 03/07/17 Ritchie Tar (T-Gel) 0.5 % Shampoo, 1 DEVON TOP weekly, #1 BOTTLE 3 Refills Prov:DORIS ADAMSON APRN-C 01/14/17 Trazodone Hcl (TRAZODONE HCL) 50 Mg Tablet, 0.5 TAB PO QHS, #45 TAB 1 Refill Prov:DORIS ADAMSON APRN-C 01/14/17 Loratadine (LORATADINE) 10 Mg Tablet, 1 TAB PO DAILY, #90 TAB 4 Refills Prov:ANGEL LUIS COLINDRES MD 08/23/16 Calcium Carbonate (CALCIUM) 600 Mg Tablet, 1 TAB PO BID, #30 TAB 11 Refills Prov:DORIS ADAMSON APRN-C 11/07/15 Lancets (ONE TOUCH DELICA) 1 Each Each, 1 STRIP MC DAILY, #100 2 Refills Prov:DORIS ADAMSON APRN-C 11/18/14 Lancing Device/Lancets (ONE TOUCH DELICA LANCING DEV) 1 Each Kit, 1 STRIP MC DAILY, #100 2 Refills Prov:DORIS ADAMSON APRN-C 11/18/14 Lancets (ONE TOUCH DELICA) 1 Each Each, 1 EACH MC, #1 Prov:DORIS ADAMSON APRNP-C 11/18/14 Diet: Regular Activity: As Tolerated, With Walker Special Instructions: short term memory issue, impulsive, manual BP Copies to: DORIS ADAMSON APRNP-C Venous Thromboembolism Antithrombotics Is Pt On Any Antithrombotics?: No (recent lumbar puncture) Problem Qualifiers (1) Altered mental status: Altered mental status type: delirium Qualified Codes: R41.0 - Disorientation , unspecified CURTIS EVANS October 08, 2017 07:38
== END 2017-10-08 08:15 | disposition home or self-care (01) | DRG 872 ==
LOC: ER 17:28 → MED 21:23
PROVIDERS: ADMIT Internal Medicine; ATTEND Internal Medicine
PROC: 009U3ZX Drainage of Spinal Canal, Percutaneous Approach, Diagnostic (ICD-10-PCS; principal; 2017-09-25)
DX: R78.81 Bacteremia (principal); F03.90 Unspecified dementia, unspecified severity, without behavioral disturbance, psychotic disturbance, mood disturbance, and anxiety; I10 Essential (primary) hypertension; E78.5 Hyperlipidemia, unspecified; B95.4 Other streptococcus as the cause of diseases classified elsewhere; J45.909 Unspecified asthma, uncomplicated; K21.9 Gastro-esophageal reflux disease without esophagitis; E03.9 Hypothyroidism, unspecified; D72.825 Bandemia; G47.33 Obstructive sleep apnea (adult) (pediatric); E11.40 Type 2 diabetes mellitus with diabetic neuropathy, unspecified; R41.0 Disorientation, unspecified; F32.9 Major depressive disorder, single episode, unspecified; Z96.651 Presence of right artificial knee joint; Z96.641 Presence of right artificial hip joint; Z88.8 Allergy status to other drugs, medicaments and biological substances
CPT/HCPCS: 36415; 36416; 70450; 71045; 71275; 73564; 74176; 76705; 81001; 82040; 82150; 82247; 82306; 82310; 82374; 82435; 82565; 82945; 82947; 82948; 83605; 83615; 83690; 83880; 84075; 84132; 84155; 84157; 84295; 84450; 84460; 84484; 84520; 85025; 85379; 85610; 85651; 85730; 86140; 87040; 87070; 87077; 87088; 87186; 87205; 87502; 87529; 87899; 89050; 93005; 96361; 96365; 96375; 97162; 97166; 99284; 99285; A4353; C8929; J0133; J0696; J1100; J1200; J1630; J1885; J1956; J2060; J2270; J3010; J3370; J3480; J7030; J7050; Q9957; Q9967

== ENCOUNTER → 2017-09-25 | Outpatient (CLI) | payer MEDICARE, BC ==
[~2017-09-25] MED LIST changes: +DIPH-740 PO; +FLUT16SP19 NS; +LEVO-85 PO
[2017-09-26 08:53] VITALS: BMI 23.6
== END ==
LOC: AMB 17:02
PROVIDERS: ATTEND Nurse Practitioner
DX: R53.83 Other fatigue (principal)
CPT/HCPCS: A0425; A0427

== ENCOUNTER → 2017-09-25 | Outpatient (CLI) | payer MEDICARE, BC ==
[2017-09-25 14:23] LABS: PLATELET COUNT, AUTOMATED 197 K/uL (150-450)
== END ==
LOC: LAB 13:46
PROVIDERS: ATTEND Nurse Practitioner Family
DX: E83.52 Hypercalcemia (principal); I10 Essential (primary) hypertension; D72.829 Elevated white blood cell count, unspecified
CPT/HCPCS: 36415; 82040; 82247; 82306; 82310; 82374; 82435; 82565; 82947; 84075; 84132; 84155; 84295; 84450; 84460; 84520; 85025; 86140